=== PATIENT | male | born 1975 | race Caucasian/White ===

== ENCOUNTER 2017-11-03 14:26 | Inpatient (IN) | payer OTHER ==
--- NOTE | 2017-11-03 14:16 | HP ---
[facility] Re[facility] Assess/Revision - Admission History Admitted to Rehab from: [facility] Date of Admission to Rehab: 11/03/2017 - Vital signs Vital Signs: NOTED; STABLE. - Findings Detox History & Physical reviewed: Yes Concur with findings: Yes Comments/Additional Findings: PATIENT'S MEDICAL / MEDICATION HISTORY REVIEWED PRIOR TO DISCHARGE FROM DETOX UNIT. PATIENT WAS DISCHARGED FROM DETOX UNIT TO BE TAKEN TO REHAB UNIT IN STABLE MEDICAL CONDITION. Inpatient Rehab Admission - Initial Determination Are CD services needed?: Yes Free of communicable disease: Yes Not in need of hospitalization: Yes - Rehab Admission Criteria Previous failed treatment: Yes Comorbidities: Yes Patient is meeting Inpatient Rehab admission criteria:: Yes
[~2017-11-03 14:26] MED LIST: ACETAMINOPHEN 325 MG TABLET (FP) PO PRN; MAG HYDROX/AL HYDROX/SIMETH 30 ML UNIT-DOSE CUP PO PRN; MAGNESIUM CITRATE 300 ML BOTTLE PO PRN; MENTHOL/PHENOL 1 EACH UD MM PRN; P-EPHED 60MG/TRIPROLIDI 2.5MG TABLET PO PRN; guaiFENesin/D-METHORPHAN HB 10 ML UNIT-DOSE CUPS PO PRN
--- NOTE | 2017-11-03 14:36 | HP ---
Psychiatrist Admission - Data Date of interview: 11/03/17 Admission source: 3N Identifying data: This is the first [facility] admission for this 41 years old male, father of 2 children, unemployed on public assistance, homeless Medical History: Significant for Hep C diagnosed in 1996, chronic back pain due to herniated disc, tinnitus both ears and benzodiazepine-related seizure. Patient attends [facility] and he is on methadone 60 mg/day. Smokes 4 cigarettes daily Psychiatric History: Reports being diagnosed with Bipolar Disorder since 2009 and has had multiple previous psychiatric hospitalizations at various institutions including [facility], [facility] and most recently in September 2017 at [facility] for depression. Reports seeing a psychiatrist at [facility] and he is prescribed Zyprexa 20 mg po HS and Celexa 10 mg po daily. Patient was seen by web content writer on 10/31/17 while in detox and was continued on his home medications. At present, reports feeling depressed and sleeping poorly Physical/Sexual Abuse/Trauma History: Denies history of emotional, physical or sexual abuseas well as DV relationship Additional Comment: Reports history of 3 previous arrests including one felony conviction. Denies being on parole/probation at present Allergies/Adverse Reactions: Allergies Allergy/AdvReac Type Severity Reaction Status Date / Time No Known Allergies Allergy Verified 11/03/17 14:38 Date of last physical exam: 10/30/17 Concur with the findings of this exam: Yes - Substance Abuse/Tx History Hx Alcohol Use: Yes Hx Substance Use: Yes (10 previous inpt detox admissions @ [facility]) Substance Use Type: Alcohol (Started drinking alcohol at age 14, consumes half a pint of liquor & 15x 16oz of beer daily. Last drank on 10/30/17)), Cocaine ( Started using cocaineat age 13, consumes 5-10 bags daily. Last used on 10/30/17)) Hx Substance Use Treatment: Yes (Currently attends [facility]) Mental Status Exam - Mental Status Exam Alert and Oriented to: Time, Place, Person Cognitive Function: Fair Patient Appearance: Well Groomed Mood: Depressed Affect: Appropriate Patient Behavior: Cooperative Speech Pattern: Clear Voice Loudness: Normal Thought Process: Intact Thought Disorder: Not Present Hallucinations: Denies Suicidal Ideation: Denies Homicidal Ideation: Denies Insight/Judgement: Fair Sleep: Poorly Appetite: Poor Muscle strength/Tone: Normal Gait/Station: Spastic Psychiatric Findings - Problem List ([place] 1, 2,3) (1) Alcohol dependence Current Visit: No Status: Active (2) Cocaine dependence Current Visit: No Status: Acute Qualifiers: Substance use status: uncomplicated Qualified Code(s): F14.20 - Cocaine dependence, uncomplicated (3) Opioid dependence on agonist therapy Current Visit: No Status: Chronic (4) Nicotine dependence Current Visit: No Status: Chronic Comment: intermittent use (5) Bipolar disorder Current Visit: Yes Status: Chronic (6) Substance induced mood disorder Current Visit: Yes Status: Acute (7) Substance-induced sleep disorder Current Visit: Yes Status: Acute (8) Hepatitis C carrier Current Visit: No Status: Chronic Comment: untreated (9) Drug withdrawal seizure Current Visit: No Status: Chronic Qualifiers: Complication of substance-induced condition: uncomplicated Qualified Code(s ): F19.230 - Other psychoactive substance dependence with withdrawal, uncomplicated - Initial Treatment Plan Initial Treatment Plan: 1) Continue Celexa 10 mg po daily and Zyprexa 20 mg po HS. 2) Start Belsomra 10 mg po HS prn for insomnia. 3) Monitor progress
[2017-11-03 14:56] VITALS: BMI 25.9
[2017-11-03] MEDS ORDERED: FLU VACCINE QUAD 60 MCG/0.5 ML (MDV 17-18) IM ONE (14:56)
[2017-11-03] MEDS: OLANZapine 10 MG TABLET PO SCH (21:15)
[2017-11-03] MEDS: THIAMINE HCL 100 MG TABLET (FP) PO SCH (21:17)
[2017-11-03] MEDS: SUVOREXANT 10 MG TABLET PO PRN (21:18)
[2017-11-03] MEDS: CYCLOBENZAPRINE HCL 5 MG TABLET PO PRN (22:38)
[2017-11-04] MEDS ORDERED: METHADONE HCL 10 MG TABLET ONE (05:47)
[2017-11-04] MEDS ORDERED: METHADONE HCL 40 MG DISPERSABLE TABLET ONE (05:47)
[2017-11-04] MEDS ORDERED: METHADONE HCL 10 MG TABLET PO SCH (06:00)
[2017-11-04] MEDS: METHADONE 40 MG, METHADONE 20 MG PO SCH (06:18)
[2017-11-04] MEDS: LOPERAMIDE HCL 2 MG CAPSULE PO PRN ×2 (07:14→21:44)
[2017-11-04] MEDS: CITALOPRAM HYDROBROMIDE 10 MG TABLET (FP) PO SCH (09:55)
[2017-11-04] MEDS: PRENATAL VITAMINS W/ FOLIC ACID TABLET (FP) PO SCH (09:55)
[2017-11-04] MEDS: CYCLOBENZAPRINE HCL 5 MG TABLET PO PRN ×2 (09:56→21:25)
[2017-11-04] MEDS: ASPIRIN COATED 81 MG TABLET.EC PO SCH (14:43)
--- NOTE | 2017-11-04 14:58 | PN ---
[facility] Progress Note Note: Patient reports chest pain (primarily left-sided) radiating down left arm and to bilateral jaws X approx. 30 minutes. Patient also reports difficulty breathing and dizziness. Patient notes that this set of symptoms has occurred before several times in the past. Patient denies any known history of cardiac, respiratory, or gastric disease. STAT ECG ordered, results noted. Lung sounds auscultated clear and equal bilaterally. VS: BP: 115/85; P: 96; RR: 18; T: 98.2. Patient A & O X 3, able to stand up and ambulate unassisted. Report given to Dr. Obrien at [facility]. Patient to be taken to [facility] for further evaluation. Yg Sarmiento NP
--- NOTE | 2017-11-04 15:53 | EKG ---
Test Reason : Blood Pressure : / mmHG Vent. Rate : 086 BPM Atrial Rate : 086 BPM P-R Int : 128 ms QRS Dur : 084 ms QT Int : 354 ms P-R-T Axes : 042 001 036 degrees QTc Int : 423 ms NORMAL SINUS RHYTHM NORMAL ECG WHEN COMPARED WITH ECG OF 30-OCT-2017 11:05, NO SIGNIFICANT CHANGE WAS FOUND Confirmed by JUD TRINH MD ([id number]) on 11/04/2017 3:53:19 PM Referred By: Confirmed By:JUD TRINH MD
[2017-11-04] MEDS: THIAMINE HCL 100 MG TABLET (FP) PO SCH (21:24)
[2017-11-04] MEDS: OLANZapine 10 MG TABLET PO SCH (21:25)
[2017-11-04] MEDS: SUVOREXANT 10 MG TABLET PO PRN (21:26)
[2017-11-05] MEDS ORDERED: METHADONE HCL 40 MG DISPERSABLE TABLET ONE (04:27)
[2017-11-05] MEDS ORDERED: METHADONE HCL 10 MG TABLET ONE (04:27)
[2017-11-05] MEDS: METHADONE 40 MG, METHADONE 20 MG PO SCH (06:14)
[2017-11-05] MEDS: LOPERAMIDE HCL 2 MG CAPSULE PO PRN (08:52)
[2017-11-05] MEDS: CITALOPRAM HYDROBROMIDE 10 MG TABLET (FP) PO SCH (09:59)
[2017-11-05] MEDS: PRENATAL VITAMINS W/ FOLIC ACID TABLET (FP) PO SCH (09:59)
[2017-11-05] MEDS: ASPIRIN COATED 81 MG TABLET.EC PO SCH (09:59)
[2017-11-05] MEDS: CYCLOBENZAPRINE HCL 5 MG TABLET PO PRN ×2 (10:00→21:29)
[2017-11-05] MEDS ORDERED: hydrOXYzine PAMOATE 50 MG CAPSULE (FP) PO PRN (14:38)
--- NOTE | 2017-11-05 14:47 | PN ---
S Progress Note Note: Patient c/ of feeling anxious, feels like is heart is raising. Reports feels non -radiating pain on TMJ joint when open and closing his mouth. Patient denies chest pain or SOB. Vital Signs Temperature 98.6 F 11/05/17 07:08 Pulse Rate 107 H 11/05/17 10:00 Respiratory Rate 18 11/05/17 10:00 Blood Pressure 118/70 11/05/17 10:00 O2 Sat by Pulse Oximetry (%) Labs review Asseesment: Patient AOx3, in no apparent distress, anxious with rapid speech Normal HR, RR No adventitious breath sounds + Pain at TMJ joint Plan: Patient informed to advise staff / RN / REGENERATION OPERATOR/ MD if CP / SOB or worsening symptoms present AST elevated d/c Tylenol Ibuprofen for pain Increase fluids Patient to follow up with psych
--- NOTE | 2017-11-05 14:56 | PN ---
Psychiatric Progress Note Vital Signs: Vital Signs Period Temp Pulse Resp BP Sys/White Pulse Ox Last 24 Hr 98.6 F 78-107 18-18 116-118/69-70 Date of Session: 11/05/17 Chief Complaint:: Anxiety HPI: Patient addressing Alcohol and Cocaine Dependence comorbid with Nicotine Dependence, Bipolar Disorder, Substance-Induced Mood Disorder and Substance- Induced Sleep Disorder ROS: Hep C, Drud withdrawal seizure Current Medications: Active Medications Generic Name Dose Route Start Last Admin Trade Name Freq PRN Reason Stop Dose Admin Al Hydroxide/Mg Hydroxide 30 ml 11/03/17 14:10 11/04/17 00:34 Mylanta Oral Suspension - PO 30 ml Q6H PRN Administration DYSPEPSIA Aspirin 81 mg 11/04/17 14:45 11/05/17 09:59 Ecotrin - PO 81 mg DAILY VICKI Administration Bismuth Subsalicylate 30 ml 11/05/17 13:09 Pepto-Bismol Liquid - PO 11/08/17 13:08 BID PRN DIARRHEA Citalopram Hydrobromide 10 mg 11/04/17 10:00 11/05/17 09:59 Celexa - PO 10 mg DAILY VICKI Administration Cyclobenzaprine HCl 5 mg 11/03/17 21:17 11/05/17 10:00 Cyclobenzaprine Hcl PO 5 mg TID PRN Administration MUSCLE SPASMS Eucalyptus/Menthol/Phenol/Sorbitol 1 each 11/03/17 14:10 Cepastat Lozenge - MM Q4H PRN SORE THROAT Guaifenesin 10 ml 11/03/17 14:10 Robitussin Dm - PO Q6H PRN COUGH Hydrocortisone 1 applic 11/05/17 14:51 Hytone 1% Cream - TP BID PRN DRY SKIN Hydroxyzine Pamoate 50 mg 11/05/17 14:38 Vistaril - PO Q6H PRN FOR ITCHING Hydroxyzine Pamoate 50 mg 11/05/17 14:49 Vistaril - PO Q4H PRN ANXIETY Ibuprofen 400 mg 11/03/17 14:10 Motrin - PO Q6H PRN Pain Level 4-6 Loperamide HCl 4 mg 11/03/17 14:10 11/05/17 08:52 Imodium - PO 4 mg Q6H PRN Administration DIARRHEA Magnesium Citrate 300 ml 11/03/17 14:10 Citroma - PO Q48H PRN CONSTIPATION Magnesium Hydroxide 30 ml 11/03/17 14:10 Milk Of Magnesia - PO DAILY PRN CONSTIPATION Methadone HCl 40 mg/ Methadone 55 mg 11/06/17 06:00 HCl 10 mg/ Methadone HCl 5 mg PO 11/12/17 05:59 DAILY@0600 VICKI Nicotine Polacrilex 2 mg 11/03/17 14:21 Nicorette Gum - BUC Q2H PRN NICOTINE REPLACEMENT RX Olanzapine 20 mg 11/03/17 22:00 11/04/17 21:25 Zyprexa - PO 20 mg HS VICKI Administration Multivit/Folic Acid/Iron 1 tab 11/04/17 10:00 11/05/17 09:59 Vitamins (Sjr) - PO 1 tab DAILY VICKI Administration Pseudoephedrine/Triprolidine 1 combo 11/03/17 14:10 Actifed - PO TID PRN NASAL CONGESTION Suvorexant 10 mg 11/03/17 15:05 11/04/17 21:26 Belsomra PO 10 mg HS PRN Administration INSOMNIA Thiamine HCl 100 mg 11/03/17 22:00 11/04/17 21:24 Vitamin B1 - PO 100 mg HS VICKI Administration Medication(s) Change(s): Start Vistaril 50 mg po Q 4hrs prn for anxiety Current Side Effect: No Lab tests ordered: Yes Lab tests reviewed: Yes Provider note:: Patient reports hat he has been feeling anxious despite being on Celexa 10 mg po daily and Zyprexa 20 mg po HS. Yesterday he was referred to [facility] ED for evaluation of chest pain. Exam there revealed that chest pain was not cardiac in origin. He said that ED physician told him that anxiety may be the culprit for his symptom. Discussed with patient anxiolytic properties as well as adverse-effects of Hydroxyzine Pamoate and he agreed to try it Total face to face time:: 15 Mental Status Exam - Mental Status Exam Alert and Oriented to: Time, Place, Person Cognitive Function: Fair Patient Appearance: Well Groomed Mood: Anxious Affect: Appropriate Patient Behavior: Cooperative Speech Pattern: Clear Voice Loudness: Normal Thought Process: Intact, Goal Oriented Thought Disorder: Not Present Hallucinations: Denies Suicidal Ideation: Denies Homicidal Ideation: Denies Insight/Judgement: Fair Sleep: Fair Appetite: Good Muscle strength/Tone: Normal Gait/Station: Normal Psychiatric Treatment Plan - Problem List (1) Alcohol dependence Current Visit: No (2) Cocaine dependence Current Visit: No Qualifiers: Substance use status: uncomplicated Qualified Code(s): F14.20 - Cocaine dependence, uncomplicated (3) Opioid dependence on agonist therapy Current Visit: No (4) Nicotine dependence Current Visit: No Comment: intermittent use (5) Bipolar disorder Current Visit: Yes (6) Substance induced mood disorder Current Visit: Yes (7) Substance-induced sleep disorder Current Visit: Yes (8) Hepatitis C carrier Current Visit: No Comment: untreated (9) Drug withdrawal seizure Current Visit: No Qualifiers: Complication of substance-induced condition: uncomplicated Qualified Code(s ): F19.230 - Other psychoactive substance dependence with withdrawal, uncomplicated Initial treatment plan: 1) Start Vistaril 50 mg po Q4hrs prn for anxiety. 2) Monitor progress
[2017-11-05] MEDS: BISMUTH SUBSALICYLATE 262 MG/15 ML BTL PO PRN ×2 (16:08→21:32)
[2017-11-05] MEDS: THIAMINE HCL 100 MG TABLET (FP) PO SCH (21:29)
[2017-11-05] MEDS: OLANZapine 10 MG TABLET PO SCH (21:29)
[2017-11-05] MEDS: SUVOREXANT 10 MG TABLET PO PRN (21:29)
[2017-11-05] MEDS: hydrOXYzine PAMOATE 50 MG CAPSULE (FP) PO PRN (21:29)
[2017-11-05] MEDS: HYDROCORTISONE 1% TOPICAL CREAM 30 GM TUBE TP PRN (21:31)
[2017-11-06] MEDS ORDERED: METHADONE HCL 40 MG DISPERSABLE TABLET ONE (05:04)
[2017-11-06] MEDS ORDERED: METHADONE HCL 10 MG TABLET ONE (05:04)
[2017-11-06] MEDS ORDERED: METHADONE HCL 5 MG TABLET ONE (05:05)
[2017-11-06] MEDS ORDERED: METHADONE HCL 40 MG DISPERSABLE TABLET PO SCH (06:00)
[2017-11-06] MEDS: METHADONE 40 MG, METHADONE 10 MG, METHADONE 5 MG PO SCH (06:34)
[2017-11-06] MEDS: ASPIRIN COATED 81 MG TABLET.EC PO SCH (09:25)
[2017-11-06] MEDS: CITALOPRAM HYDROBROMIDE 10 MG TABLET (FP) PO SCH (09:25)
[2017-11-06] MEDS: PRENATAL VITAMINS W/ FOLIC ACID TABLET (FP) PO SCH (09:25)
[2017-11-06] MEDS: hydrOXYzine PAMOATE 50 MG CAPSULE (FP) PO PRN ×2 (09:26→21:14)
[2017-11-06] MEDS: CYCLOBENZAPRINE HCL 5 MG TABLET PO PRN ×2 (09:26→21:14)
[2017-11-06] MEDS: BISMUTH SUBSALICYLATE 262 MG/15 ML BTL PO PRN ×2 (09:27→21:16)
[2017-11-06] MEDS: THIAMINE HCL 100 MG TABLET (FP) PO SCH (21:14)
[2017-11-06] MEDS: OLANZapine 10 MG TABLET PO SCH (21:14)
--- NOTE | 2017-11-06 21:26 | PN ---
S Progress Note Note: Psychiatry Attending's commissioning editor note : Belsomra 10 mg po hs prn. Renewed as per already established careplan.
[2017-11-06] MEDS: SUVOREXANT 10 MG TABLET PO PRN (22:06)
[2017-11-07] MEDS ORDERED: METHADONE HCL 10 MG TABLET ONE (03:39)
[2017-11-07] MEDS ORDERED: METHADONE HCL 40 MG DISPERSABLE TABLET ONE (03:39)
[2017-11-07] MEDS ORDERED: METHADONE HCL 5 MG TABLET ONE (03:40)
[2017-11-07] MEDS: METHADONE 40 MG, METHADONE 10 MG, METHADONE 5 MG PO SCH (05:54)
[2017-11-07] MEDS: PRENATAL VITAMINS W/ FOLIC ACID TABLET (FP) PO SCH (09:42)
[2017-11-07] MEDS: BISMUTH SUBSALICYLATE 262 MG/15 ML BTL PO PRN (09:42)
[2017-11-07] MEDS: ASPIRIN COATED 81 MG TABLET.EC PO SCH (09:42)
[2017-11-07] MEDS: CITALOPRAM HYDROBROMIDE 10 MG TABLET (FP) PO SCH (09:42)
[2017-11-07] MEDS: MAGNESIUM HYDROX 2400MG/30ML ORAL SUSPENSION 30 ML CUP PO PRN (09:43)
[2017-11-07] MEDS: THIAMINE HCL 100 MG TABLET (FP) PO SCH (21:14)
[2017-11-07] MEDS: SUVOREXANT 10 MG TABLET PO PRN (21:14)
[2017-11-07] MEDS: CYCLOBENZAPRINE HCL 5 MG TABLET PO PRN (21:14)
[2017-11-07] MEDS: OLANZapine 10 MG TABLET PO SCH (21:14)
[2017-11-07] MEDS: HYDROCORTISONE 1% TOPICAL CREAM 30 GM TUBE TP PRN (21:16)
[2017-11-07] MEDS: hydrOXYzine PAMOATE 50 MG CAPSULE (FP) PO PRN (21:25)
[2017-11-08] MEDS ORDERED: METHADONE HCL 10 MG TABLET ONE (03:32)
[2017-11-08] MEDS ORDERED: METHADONE HCL 5 MG TABLET ONE (03:32)
[2017-11-08] MEDS ORDERED: METHADONE HCL 40 MG DISPERSABLE TABLET ONE (03:32)
[2017-11-08] MEDS: METHADONE 40 MG, METHADONE 10 MG, METHADONE 5 MG PO SCH (06:09)
[2017-11-08] MEDS: CITALOPRAM HYDROBROMIDE 10 MG TABLET (FP) PO SCH (09:51)
[2017-11-08] MEDS: ASPIRIN COATED 81 MG TABLET.EC PO SCH (09:51)
[2017-11-08] MEDS: MAGNESIUM HYDROX 2400MG/30ML ORAL SUSPENSION 30 ML CUP PO PRN (09:51)
[2017-11-08] MEDS: PRENATAL VITAMINS W/ FOLIC ACID TABLET (FP) PO SCH (09:51)
[2017-11-08] MEDS: CYCLOBENZAPRINE HCL 5 MG TABLET PO PRN ×2 (09:52→21:14)
[2017-11-08] MEDS: hydrOXYzine PAMOATE 50 MG CAPSULE (FP) PO PRN ×2 (16:06→21:14)
[2017-11-08] MEDS: THIAMINE HCL 100 MG TABLET (FP) PO SCH (21:14)
[2017-11-08] MEDS: OLANZapine 10 MG TABLET PO SCH (21:14)
[2017-11-08] MEDS: SUVOREXANT 10 MG TABLET PO PRN (21:15)
[2017-11-09] MEDS: IBUPROFEN 400 MG TABLET (FP) PO PRN (00:12)
[2017-11-09] MEDS ORDERED: METHADONE HCL 40 MG DISPERSABLE TABLET ONE (03:07)
[2017-11-09] MEDS ORDERED: METHADONE HCL 10 MG TABLET ONE (03:07)
[2017-11-09] MEDS ORDERED: METHADONE HCL 5 MG TABLET ONE (03:07)
[2017-11-09] MEDS: METHADONE 40 MG, METHADONE 10 MG, METHADONE 5 MG PO SCH (06:10)
[2017-11-09] MEDS: CITALOPRAM HYDROBROMIDE 10 MG TABLET (FP) PO SCH (09:44)
[2017-11-09] MEDS: PRENATAL VITAMINS W/ FOLIC ACID TABLET (FP) PO SCH (09:44)
[2017-11-09] MEDS: ASPIRIN COATED 81 MG TABLET.EC PO SCH (09:44)
[2017-11-09] MEDS: hydrOXYzine PAMOATE 50 MG CAPSULE (FP) PO PRN ×3 (09:47→21:44)
[2017-11-09] MEDS: THIAMINE HCL 100 MG TABLET (FP) PO SCH (21:42)
[2017-11-09] MEDS: OLANZapine 10 MG TABLET PO SCH (21:42)
[2017-11-09] MEDS: NICOTINE POLACRILEX 2 MG GUM BUC PRN (21:45)
[2017-11-09] MEDS: SUVOREXANT 10 MG TABLET PO PRN (21:45)
[2017-11-09] MEDS: CYCLOBENZAPRINE HCL 5 MG TABLET PO PRN (21:45)
[2017-11-10] MEDS ORDERED: METHADONE HCL 40 MG DISPERSABLE TABLET ONE (04:38)
[2017-11-10] MEDS ORDERED: METHADONE HCL 10 MG TABLET ONE (04:38)
[2017-11-10] MEDS ORDERED: METHADONE HCL 5 MG TABLET ONE (04:38)
[2017-11-10] MEDS: METHADONE 40 MG, METHADONE 10 MG, METHADONE 5 MG PO SCH (06:01)
[2017-11-10] MEDS: PRENATAL VITAMINS W/ FOLIC ACID TABLET (FP) PO SCH (09:59)
[2017-11-10] MEDS: CITALOPRAM HYDROBROMIDE 10 MG TABLET (FP) PO SCH (09:59)
[2017-11-10] MEDS: CYCLOBENZAPRINE HCL 5 MG TABLET PO PRN ×2 (09:59→21:07)
[2017-11-10] MEDS: ASPIRIN COATED 81 MG TABLET.EC PO SCH (09:59)
[2017-11-10] MEDS: hydrOXYzine PAMOATE 50 MG CAPSULE (FP) PO PRN ×3 (09:59→21:07)
[2017-11-10] MEDS ORDERED: COLLOIDAL OATMEAL 1 BAR EACH TP PRN (14:59)
[2017-11-10] MEDS ORDERED: SODIUM PHOSPHATE/NA BIPHOS 133 ML ENEMA PR ONE (15:39)
--- NOTE | 2017-11-10 15:41 | PN ---
[facility] Progress Note Note: Patient complain of constipation x 3 days. No N/V/D. Last BM 3 days. OBJ: Alert and oriented x 3. In NAD. GI: softly distended, BS+, NT A/P constipation Increase oral fluids Fleets enema HI x one dose monitor clinically
[2017-11-10] MEDS: OLANZapine 10 MG TABLET PO SCH (21:07)
[2017-11-10] MEDS: THIAMINE HCL 100 MG TABLET (FP) PO SCH (21:07)
[2017-11-10] MEDS: SUVOREXANT 10 MG TABLET PO PRN (21:07)
[2017-11-11] MEDS ORDERED: METHADONE HCL 10 MG TABLET ONE (04:20)
[2017-11-11] MEDS ORDERED: METHADONE HCL 5 MG TABLET ONE (04:20)
[2017-11-11] MEDS ORDERED: METHADONE HCL 40 MG DISPERSABLE TABLET ONE (04:20)
[2017-11-11] MEDS: METHADONE 40 MG, METHADONE 10 MG, METHADONE 5 MG PO SCH (06:26)
[2017-11-11] MEDS: CYCLOBENZAPRINE HCL 5 MG TABLET PO PRN (09:56)
[2017-11-11] MEDS: PRENATAL VITAMINS W/ FOLIC ACID TABLET (FP) PO SCH (09:57)
[2017-11-11] MEDS: hydrOXYzine PAMOATE 50 MG CAPSULE (FP) PO PRN ×3 (09:57→21:21)
[2017-11-11] MEDS: ASPIRIN COATED 81 MG TABLET.EC PO SCH (09:57)
[2017-11-11] MEDS: CITALOPRAM HYDROBROMIDE 10 MG TABLET (FP) PO SCH (09:57)
[2017-11-11] MEDS: NICOTINE POLACRILEX 2 MG GUM BUC PRN (09:58)
[2017-11-11] MEDS: THIAMINE HCL 100 MG TABLET (FP) PO SCH (21:19)
[2017-11-11] MEDS: OLANZapine 10 MG TABLET PO SCH (21:20)
[2017-11-11] MEDS: SUVOREXANT 10 MG TABLET PO PRN (21:20)
[2017-11-12] MEDS ORDERED: METHADONE HCL 40 MG DISPERSABLE TABLET ONE (04:12)
[2017-11-12] MEDS ORDERED: METHADONE HCL 10 MG TABLET ONE (04:12)
[2017-11-12] MEDS ORDERED: METHADONE HCL 5 MG TABLET ONE (04:13)
[2017-11-12] MEDS: METHADONE 40 MG, METHADONE 10 MG, METHADONE 5 MG PO SCH (06:09)
[2017-11-12] MEDS: CITALOPRAM HYDROBROMIDE 10 MG TABLET (FP) PO SCH (09:37)
[2017-11-12] MEDS: CYCLOBENZAPRINE HCL 5 MG TABLET PO PRN ×2 (09:37→22:00)
[2017-11-12] MEDS: ASPIRIN COATED 81 MG TABLET.EC PO SCH (09:37)
[2017-11-12] MEDS: hydrOXYzine PAMOATE 50 MG CAPSULE (FP) PO PRN ×3 (09:38→22:00)
[2017-11-12] MEDS: PRENATAL VITAMINS W/ FOLIC ACID TABLET (FP) PO SCH (09:38)
[2017-11-12] MEDS: OLANZapine 10 MG TABLET PO SCH (22:00)
[2017-11-12] MEDS: THIAMINE HCL 100 MG TABLET (FP) PO SCH (22:01)
--- NOTE | 2017-11-12 23:17 | PN ---
S Progress Note Note: RECEIVED REPORT FROM RN THAT PT. WAS C/O OF CHEST PAIN RADIATING DOWN LEFT ARM AND JAW PAIN. VS WERE FOLLOWED: BP 111/82, P 88, R 18, T. 98.2) STAT EKG ORDERED. NSR. CONSULTED WITH THE PT. ON THE UNIT. HE WAS WATCHING TV WITH NO SIGNS OF DISTRESS NOTED OR REPORTED. HE REPORTS HE HAS HAD SIMILAR PAIN FOR THE LAST 7 MONTHS. HE WAS ADVISED TO NOTIFY MD/TOBACCO CLASSER/RN IF SYMPTOMS WORSEN AND TO FOLLOW-UP WITH PCP UPON DISCHARGE.
[2017-11-13] MEDS ORDERED: METHADONE HCL 40 MG DISPERSABLE TABLET ONE (03:16)
[2017-11-13] MEDS ORDERED: METHADONE HCL 10 MG TABLET ONE (03:16)
[2017-11-13] MEDS ORDERED: METHADONE HCL 5 MG TABLET ONE (03:16)
[2017-11-13] MEDS: METHADONE 40 MG, METHADONE 10 MG, METHADONE 5 MG PO SCH (06:24)
[2017-11-13] MEDS: ASPIRIN COATED 81 MG TABLET.EC PO SCH (09:29)
[2017-11-13] MEDS: CYCLOBENZAPRINE HCL 5 MG TABLET PO PRN ×2 (09:30→21:14)
[2017-11-13] MEDS: PRENATAL VITAMINS W/ FOLIC ACID TABLET (FP) PO SCH (09:30)
[2017-11-13] MEDS: CITALOPRAM HYDROBROMIDE 10 MG TABLET (FP) PO SCH (09:30)
[2017-11-13] MEDS: hydrOXYzine PAMOATE 50 MG CAPSULE (FP) PO PRN ×3 (09:30→21:14)
[2017-11-13] MEDS: IBUPROFEN 400 MG TABLET (FP) PO PRN (15:36)
[2017-11-13] MEDS: THIAMINE HCL 100 MG TABLET (FP) PO SCH (21:12)
[2017-11-13] MEDS: OLANZapine 10 MG TABLET PO SCH (21:12)
[2017-11-13] MEDS: MELATONIN 5 MG TABLETS PO PRN (23:07)
[2017-11-14] MEDS ORDERED: METHADONE HCL 5 MG TABLET ONE (02:50)
[2017-11-14] MEDS ORDERED: METHADONE HCL 40 MG DISPERSABLE TABLET ONE (02:50)
[2017-11-14] MEDS ORDERED: METHADONE HCL 10 MG TABLET ONE (02:50)
[2017-11-14] MEDS: METHADONE 40 MG, METHADONE 10 MG, METHADONE 5 MG PO SCH (06:13)
[2017-11-14] MEDS: IBUPROFEN 400 MG TABLET (FP) PO PRN ×3 (06:16→21:23)
[2017-11-14] MEDS: CYCLOBENZAPRINE HCL 5 MG TABLET PO PRN ×3 (07:22→21:24)
--- NOTE | 2017-11-14 09:22 | EKG ---
Test Reason : Blood Pressure : / mmHG Vent. Rate : 084 BPM Atrial Rate : 084 BPM P-R Int : 150 ms QRS Dur : 086 ms QT Int : 386 ms P-R-T Axes : 056 -03 032 degrees QTc Int : 456 ms NORMAL SINUS RHYTHM NORMAL ECG WHEN COMPARED WITH ECG OF 04-NOV-2017 16:56, NO SIGNIFICANT CHANGE WAS FOUND Confirmed by PRADIP EDOUARD MD ([id number]) on 11/14/2017 9:22:30 AM Referred By: Confirmed By:PRADIP EDOUARD MD
[2017-11-14] MEDS: ASPIRIN COATED 81 MG TABLET.EC PO SCH (09:43)
[2017-11-14] MEDS: PRENATAL VITAMINS W/ FOLIC ACID TABLET (FP) PO SCH (09:43)
[2017-11-14] MEDS: CITALOPRAM HYDROBROMIDE 10 MG TABLET (FP) PO SCH (09:43)
[2017-11-14] MEDS: hydrOXYzine PAMOATE 50 MG CAPSULE (FP) PO PRN ×2 (09:45→21:24)
[2017-11-14] MEDS: HYDROCORTISONE 1% TOPICAL CREAM 30 GM TUBE TP PRN (10:33)
[2017-11-14] MEDS ORDERED: PT OWN MED DRAWER 7, Y5N ONE (10:34)
[2017-11-14] MEDS ORDERED: IBUPROFEN 400 MG TABLET (FP) PO ONE (13:28)
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
--- NOTE | 2017-11-14 20:10 | PN ---
[facility] Progress Note (SOAP) Subjective: Patient was seen and evaluated in bed. Complained of chest pain radiating to both arms and jaw. Patient states that he has experienced this for about 8 months. Appears very anxious. Objective: 11/14/17 20:06 Vital Signs Temperature 98.0 F 11/14/17 06:44 Pulse Rate 84 11/14/17 06:44 Respiratory Rate 18 11/14/17 06:44 Blood Pressure 120/77 11/14/17 06:44 O2 Sat by Pulse Oximetry (%) Assessment: Anxiety Plan: EKG- NSR Motrin 400mg tablet oral Psych Consult
[2017-11-14] MEDS: OLANZapine 10 MG TABLET PO SCH (21:24)
[2017-11-14] MEDS: THIAMINE HCL 100 MG TABLET (FP) PO SCH (21:24)
[2017-11-14] MEDS: MELATONIN 5 MG TABLETS PO PRN (21:25)
[2017-11-15] MEDS ORDERED: METHADONE HCL 40 MG DISPERSABLE TABLET ONE (04:21)
[2017-11-15] MEDS ORDERED: METHADONE HCL 10 MG TABLET ONE (04:21)
[2017-11-15] MEDS ORDERED: METHADONE HCL 5 MG TABLET ONE (04:22)
[2017-11-15] MEDS: METHADONE 40 MG, METHADONE 10 MG, METHADONE 5 MG PO SCH (06:28)
[2017-11-15] MEDS: IBUPROFEN 400 MG TABLET (FP) PO PRN ×2 (06:33→14:32)
[2017-11-15] MEDS: CYCLOBENZAPRINE HCL 5 MG TABLET PO PRN ×4 (06:34→21:07)
[2017-11-15] MEDS: CITALOPRAM HYDROBROMIDE 10 MG TABLET (FP) PO SCH (10:54)
[2017-11-15] MEDS: PRENATAL VITAMINS W/ FOLIC ACID TABLET (FP) PO SCH (10:54)
[2017-11-15] MEDS: hydrOXYzine PAMOATE 50 MG CAPSULE (FP) PO PRN ×2 (10:54→21:07)
[2017-11-15] MEDS: ASPIRIN COATED 81 MG TABLET.EC PO SCH (10:54)
[2017-11-15] MEDS: THIAMINE HCL 100 MG TABLET (FP) PO SCH (21:07)
[2017-11-15] MEDS: OLANZapine 10 MG TABLET PO SCH (21:07)
[2017-11-15] MEDS: MELATONIN 5 MG TABLETS PO PRN (21:08)
--- NOTE | 2017-11-15 23:56 | EKG ---
Test Reason : Blood Pressure : / mmHG Vent. Rate : 090 BPM Atrial Rate : 090 BPM P-R Int : 154 ms QRS Dur : 086 ms QT Int : 370 ms P-R-T Axes : 059 -04 031 degrees QTc Int : 452 ms NORMAL SINUS RHYTHM NORMAL ECG WHEN COMPARED WITH ECG OF 12-NOV-2017 20:03, NO SIGNIFICANT CHANGE WAS FOUND Confirmed by JOSE MARTIN TRIPLETT MD ([id number]) on 11/15/2017 11:56:20 PM Referred By: Confirmed By:JOSE MARTIN TRIPLETT MD
[2017-11-16] MEDS ORDERED: METHADONE HCL 40 MG DISPERSABLE TABLET ONE (04:22)
[2017-11-16] MEDS ORDERED: METHADONE HCL 5 MG TABLET ONE (04:22)
[2017-11-16] MEDS ORDERED: METHADONE HCL 10 MG TABLET ONE (04:22)
[2017-11-16] MEDS: METHADONE 40 MG, METHADONE 10 MG, METHADONE 5 MG PO SCH (06:15)
[2017-11-16] MEDS ORDERED: PT OWN MED DRAWER 7, Y5N ONE ×2 (06:20→06:47)
--- NOTE | 2017-11-16 06:32 | PN ---
Psychiatric Progress Note Vital Signs: Vital Signs Period Temp Pulse Resp BP Sys/White Pulse Ox Last 24 Hr 97.5 F 71 18-20 98/69 Date of Session: 11/16/17 Chief Complaint:: Discharge Note HPI: Patient addressing Alcohol and Cocaine Dependencecomorbid with Opioid Dependence on Agonist Therapy, Nicotine Dependence, Bipolar Disorder, Substance- Induce Mood Disorder and Substance-Induced Sleep Disorder ROS: Hep C, Drug withdrawal seizure Current Medications: Active Medications Generic Name Dose Route Start Last Admin Trade Name Freq PRN Reason Stop Dose Admin Al Hydroxide/Mg Hydroxide 30 ml 11/03/17 14:10 11/04/17 00:34 Mylanta Oral Suspension - PO 30 ml Q6H PRN Administration DYSPEPSIA Aspirin 81 mg 11/04/17 14:45 11/15/17 10:54 Ecotrin - PO 81 mg DAILY VICKI Administration Citalopram Hydrobromide 10 mg 11/04/17 10:00 11/15/17 10:54 Celexa - PO 10 mg DAILY VICKI Administration Colloidal Oatmeal 1 applic 11/10/17 14:59 Aveeno Soap - TP DAILY PRN HYGEINE Cyclobenzaprine HCl 5 mg 11/03/17 21:17 11/15/17 21:07 Cyclobenzaprine Hcl PO 5 mg TID PRN Administration MUSCLE SPASMS Eucalyptus/Menthol/Phenol/Sorbitol 1 each 11/03/17 14:10 Cepastat Lozenge - MM Q4H PRN SORE THROAT Guaifenesin 10 ml 11/03/17 14:10 Robitussin Dm - PO Q6H PRN COUGH Hydrocortisone 1 applic 11/05/17 15:25 11/14/17 10:33 Hytone 1% Cream - TP 1 applic BID PRN Administration DRY SKIN Hydroxyzine Pamoate 50 mg 11/05/17 14:49 11/15/17 21:07 Vistaril - PO 50 mg Q4H PRN Administration ANXIETY Ibuprofen 400 mg 11/03/17 14:10 11/15/17 14:32 Motrin - PO 400 mg Q6H PRN Administration Pain Level 4-6 Loperamide HCl 4 mg 11/03/17 14:10 11/05/17 08:52 Imodium - PO 4 mg Q6H PRN Administration DIARRHEA Magnesium Citrate 300 ml 11/03/17 14:10 11/09/17 09:47 Citroma - PO 300 ml Q48H PRN Administration CONSTIPATION Magnesium Hydroxide 30 ml 11/03/17 14:10 11/08/17 09:51 Milk Of Magnesia - PO 30 ml DAILY PRN Administration CONSTIPATION Melatonin 5 mg 11/13/17 22:26 11/15/17 21:08 Melatonin PO 5 mg HS PRN Administration INSOMNIA Methadone HCl 40 mg/ Methadone 55 mg 11/12/17 06:00 11/16/17 06:15 HCl 10 mg/ Methadone HCl 5 mg PO 11/18/17 05:59 55 mg DAILY@0600 VICKI Administration Nicotine Polacrilex 2 mg 11/03/17 14:21 11/11/17 09:58 Nicorette Gum - BUC 2 mg Q2H PRN Administration NICOTINE REPLACEMENT RX Olanzapine 20 mg 11/03/17 22:00 11/15/17 21:07 Zyprexa - PO 20 mg HS VICKI Administration Multivit/Folic Acid/Iron 1 tab 11/04/17 10:00 11/15/17 10:54 Vitamins (Sjr) - PO 1 tab DAILY VICKI Administration Pseudoephedrine/Triprolidine 1 combo 11/03/17 14:10 Actifed - PO TID PRN NASAL CONGESTION Thiamine HCl 100 mg 11/03/17 22:00 11/15/17 21:07 Vitamin B1 - PO 100 mg HS VICKI Administration Current Side Effect: No Lab tests ordered: Yes Lab tests reviewed: Yes Provider note:: Patient has completed this program today. He has met his treatment goals and will continue to address his issues in ferry terminal agent residential program at [facility]. Told advertising copy writer that from his participation in this program, he has learned to surround himself with positive, sober network to maitain abstinence. He responded well to Celexa 10 mg po daily, Zyprexa 20 mg po HS, Belsomra prn for sleep and Vistaril prn fr anxiety. Scripts for 30 days supply of Celexa and Zyprexa are electronically transmitted to [facility] at [address] [place] [address]. He is stable for discharge today Total face to face time:: 35 Mental Status Exam - Mental Status Exam Alert and Oriented to: Time, Place, Person Cognitive Function: Fair Patient Appearance: Well Groomed Mood: Hopeful, Euthymic Affect: Appropriate Patient Behavior: Cooperative Speech Pattern: Clear Voice Loudness: Normal Thought Process: Intact, Goal Oriented Thought Disorder: Not Present Hallucinations: Denies Suicidal Ideation: Denies Homicidal Ideation: Denies Insight/Judgement: Fair Sleep: Fair Appetite: Good Muscle strength/Tone: Normal Gait/Station: Normal Psychiatric Treatment Plan - Problem List (1) Alcohol dependence Current Visit: No (2) Cocaine dependence Current Visit: No Qualifiers: Substance use status: uncomplicated Qualified Code(s): F14.20 - Cocaine dependence, uncomplicated (3) Opioid dependence on agonist therapy Current Visit: No (4) Nicotine dependence Current Visit: No Comment: intermittent use (5) Bipolar disorder Current Visit: Yes (6) Substance induced mood disorder Current Visit: Yes (7) Substance-induced sleep disorder Current Visit: Yes (8) Hepatitis C carrier Current Visit: No Comment: untreated (9) Drug withdrawal seizure Current Visit: No Qualifiers: Complication of substance-induced condition: uncomplicated Qualified Code(s ): F19.230 - Other psychoactive substance dependence with withdrawal, uncomplicated Initial treatment plan: Patient is discharged today and referred to [facility] for [facility] agent residential treatment
[2017-11-16 07:03] VITALS: BP 112/77; PULSE 87; TEMP 98.4
[2017-11-16] MEDS: CYCLOBENZAPRINE HCL 5 MG TABLET PO PRN (07:20)
[2017-11-16] MEDS: IBUPROFEN 400 MG TABLET (FP) PO PRN (07:20)
== END 2017-11-16 08:50 | disposition home or self-care (01) | DRG 772 ==
LOC: YASAS 14:26 → Y3W 14:27
PROVIDERS: ADMIT Psychiatry & Neurology Psychiatry; ATTEND Psychiatry & Neurology Psychiatry
PROC: HZ42ZZZ Group Counseling for Substance Abuse Treatment, Cognitive-Behavioral (ICD-10-PCS; principal; 2017-11-03)
DX: F11.20 Opioid dependence, uncomplicated (principal); F10.20 Alcohol dependence, uncomplicated; F14.20 Cocaine dependence, uncomplicated; F17.210 Nicotine dependence, cigarettes, uncomplicated; F31.9 Bipolar disorder, unspecified; F19.24 Other psychoactive substance dependence with psychoactive substance-induced mood disorder; F19.282 Other psychoactive substance dependence with psychoactive substance-induced sleep disorder; B18.2 Chronic viral hepatitis C; G40.509 Epileptic seizures related to external causes, not intractable, without status epilepticus; Z59.0 Homelessness
CPT/HCPCS: 93005; 93010

== ENCOUNTER 2017-11-04 15:31 | Emergency (ER) | payer OTHER ==
[2017-11-04 16:09] VITALS: BP 106/55; PULSE 88; TEMP 98.9; BMI 25.9
--- NOTE | 2017-11-04 17:03 | PDOC ---
Attending Attestation - Resident Resident Name: Jazmine Mckenzie - ED Attending Attestation I have performed the following: I have examined & evaluated the patient, The case was reviewed & discussed with the resident, I agree w/resident's findings & plan, Exceptions are as noted - HPI HPI: 11/04/17 17:06 41y M hx of cocaine abuse presents with complaint of chest pain, pt notes the pain is sharp and radiates to the jaw. Pt states it lasts for minutes at time. Pt states the pain has been similar to what he has in the past that typically is sharp and radite to the jaw an dfrequently with exetion but notes he has seen a cardiolgoist for w orkup including echo and stress test that was negative. pt notes he is currently asymptmatic with complete resolution of his pain. Exam is unremarkable concern for cocaine cp will obtain trop x 2 ekg nsr here - Physicial Exam PE: GENERAL: The patient is awake, alert, and fully oriented, Nontoxic - in no acute distress. HEAD: Normocephalic, atraumatic. EYES: extraocular movements intact, sclera anicteric, conjunctiva clear. ENT: Normal voice, Moist mucous membranes. NECK: Normal range of motion, supple LUNGS: Breath sounds equal, clear to auscultation bilaterally. No wheezes, no rhonchi, no rales. HEART: Regular rate and rhythm, normal S1 and S2 without murmur, rub or gallop. ABDOMEN: Soft, nontender, . No guarding, no rebound. EXTREMITIES: Normal range of motion, no edema. NEUROLOGICAL: No facial assymetry, Normal speech, PSYCH: Normal mood, normal affect. SKIN: Warm, Dry, normal turgor, - Medical Decision Making 11/06/17 05:16 see above Heart Score/ECG Review - ECG Impressions Comment:: 11/04/17 17:16 Twelve-lead EKG was performed and reviewed by me. There is normal sinus rhythm with a normal rate. Rate of 80 The axis is normal. The intervals are normal. There is normal R wave progression There are no ST or T wave abnormalities. Impression: Normal twelve-lead EKG
[2017-11-04 17:09] LABS: BASO % 0.4 % (0-2.0); EOS % 2.3 % (0-4.5); HEMATOCRIT 35.6 % (35.4-49); HEMOGLOBIN 12.4 GM/dL (11.7-16.9); LYMPH % 16.5 % (8-40); MCH 31.4 pg (25.7-33.7); MCHC 34.9 g/dl (32.0-35.9); MEAN CELL VOLUME 89.9 fl (80-96); MEAN PLT VOLUME 8.8 fl (7.5-11.1); MONO % 5.8 % (3.8-10.2); PLATELET COUNT 194 K/MM3 (134-434); RBC 3.96 M/mm3 (4.00-5.60); RDW 14.6 % (11.9-15.9); WHITE BLOOD COUNT 7.9 K/mm3 (4.0-10.0)
[2017-11-04 17:39] LABS: ALBUMIN 3.5 g/dl (3.4-5.0); ANION GAP 4 (8-16); BLOOD UREA NITROGEN 13 mg/dL (7-18); CALCIUM 8.5 mg/dL (8.5-10.1); CHLORIDE 103 mmol/L (98-107); CO2 29 mmol/L (21-32); CREATININE 0.8 mg/dL (0.7-1.3); GLUCOSE,RANDOM 98 mg/dL (74-106); POTASSIUM 4.4 mmol/L (3.5-5.1); SGOT/AST 89 U/L (15-37); SGPT/ALT 209 U/L (12-78); SODIUM 136 mmol/L (136-145); TOT PROT 7.7 g/dl (6.4-8.2)
[2017-11-04 17:41] LABS: ALK PHOS 123 U/L (45-117)
[2017-11-04 17:42] LABS: BILIRUBIN,TOTAL < 0.1 mg/dL (0.2-1.0)
--- NOTE | 2017-11-04 18:14 | PDOC ---
History of Present Illness - General Chief Complaint: Chest Pain Stated Complaint: CHEST PAIN Time Seen by Provider: 11/04/17 16:15 History Source: Patient - History of Present Illness Initial Comments: 11/04/17 18:14 Patient is a 41 y.o. male with a PMH of substance (cocaine and alcohol) who presents from [facility] with resolved chest pain. Chest pain started earlier today while patient was ambulating and was substernal, 10/10, "squeezing" and "sharp" and radiated to his jaw. Patient denies any associated shortness of breath, lightheadedness, diaphoresis. Patient notes he felt a similar pain last week while ambulating. Patient notes a prior evaluation earlier this calendar year at [facility] that included a negative stress test and echocardiogram. Patient denies any fevers/chills, nausea/vomiting, diarrhea/constipation, recent travel or sick contacts. Past History - Past Medical History Allergies/Adverse Reactions: Allergies Allergy/AdvReac Type Severity Reaction Status Date / Time No Known Allergies Allergy Verified 11/04/17 16:09 Home Medications: Ambulatory Orders Citalopram Hydrobromide [Celexa -] 10 mg PO DAILY #30 tablet 10/31/17 Olanzapine [Zyprexa] 20 mg PO HS #30 tablet 10/31/17 Anemia: No Asthma: No Cancer: No Cardiac Disorders: No CVA: No COPD: No CHF: No DVT: No Dementia: No Diabetes: No GI Disorders: No Disorders: No HTN: No Hypercholesterolemia: No Kidney Stones: No Liver Disease: No Seizures: No Thyroid Disease: No Other medical history: etoh,cocaine abuse - Surgical History Abdominal Surgery: No Appendectomy: No Cardiac Surgery: No Cholecystectomy: No Lung Surgery: No Neurologic Surgery: No Orthopedic Surgery: No - Reproductive History Testicular Surgery: No - Suicide/Smoking/Psychosocial Hx Smoking History: Unknown if ever smoked Have you smoked in the past 12 months: Yes Number of Cigarettes Smoked Daily: 0 Cigars Per Day: 0 'Breaking Loose' booklet given: 10/30/17 (give on floor) Hx Alcohol Use: Yes Drug/Substance Use Hx: Yes (10 previous inpt detox admissions @ [facility]) Substance Use Type: Alcohol, Cocaine Hx Substance Use Treatment: Yes (Currently attends [facility]) Review of Systems - Review of Systems Constitutional: No: Chills, Fever HEENTM: No: Recent change in vision Respiratory: No: Cough, Shortness of Breath Cardiac (ROS): Yes: Chest Tightness. No: Lightheadedness, Palpitations, Syncope ABD/GI: No: Constipated, Diarrhea, Nausea, Vomiting : No: Burning, Dysuria *Physical Exam - Vital Signs Last Vital Signs Temp Pulse Resp BP Pulse Ox 98.9 F 88 16 106/55 95 11/04/17 16:05 11/04/17 16:05 11/04/17 16:05 11/04/17 16:05 11/04/17 16:05 - Physical Exam General Appearance: Yes: Nourished, Appropriately Dressed HEENT: positive: EOMI, PRIMITIVO, Excessive drooling Neck: positive: Supple Respiratory/Chest: positive: Lungs Clear Cardiovascular: positive: S1, S2. negative: Edema, JVD Gastrointestinal/Abdominal: positive: Normal Bowel Sounds, Soft Musculoskeletal: negative: CVA Tenderness (R), CVA Tenderness (L) Extremity: positive: Normal Capillary Refill, Normal Range of Motion Integumentary: positive: Normal Color, Dry, Warm Neurologic: positive: Fully Oriented, Alert ED Treatment Course - LABORATORY CBC & Chemistry Diagram: 11/04/17 16:04 11/04/17 15:48 - ADDITIONAL ORDERS Additional order review: Laboratory Results 11/04/17 15:48 Sodium 136 Potassium 4.4 Chloride 103 Carbon Dioxide 29 Anion Gap 4 L BUN 13 D Creatinine 0.8 D Creat Clearance w eGFR > 60 Random Glucose 98 D Calcium 8.5 Total Bilirubin < 0.1 L D AST 89 H D ALT 209 H D Alkaline Phosphatase 123 H D Creatine Kinase 69 Troponin I < 0.02 Total Protein 7.7 Albumin 3.5 11/04/17 16:04 RBC 3.96 L MCV 89.9 MCHC 34.9 RDW 14.6 MPV 8.8 Neutrophils % 75.0 D Lymphocytes % 16.5 D Monocytes % 5.8 Eosinophils % 2.3 Basophils % 0.4 Medical Decision Making - Medical Decision Making 11/04/17 18:19 41 year old male presents with resolved exertional chest pain. H/o cocaine and alcohol abuse, last admitted use 1 week previous. DDx includes r/o ACS, angina vs. cocaine induced MD. Will obtain Troponin x2, ECG. Planned disposition is discharge to [facility] pending Troponin. 11/04/17 19:04 Troponin (-) x1. EKG shows NSR HR 80 with no deviations, normal interval. Good R wave progression V1-V6, no NIMISHA/STD. Non-ischemic ECG. 11/04/17 19:07 Second Troponin pending. Patient signed out to Dr. Corley (Resident) and Dr. Berrois (Attending) with planned disposition return to detox if 2nd Troponin negative. *DC/Admit/Observation/Transfer Diagnosis at time of Disposition: Chest pain - Referrals - Patient Instructions - Post Discharge Activity
--- NOTE | 2017-11-04 19:34 | PDOC ---
*Physical Exam - Vital Signs Last Vital Signs Temp Pulse Resp BP Pulse Ox 98.9 F 88 16 106/55 95 11/04/17 16:05 11/04/17 16:05 11/04/17 16:05 11/04/17 16:05 11/04/17 16:05 ED Treatment Course - LABORATORY CBC & Chemistry Diagram: 11/04/17 16:04 11/04/17 15:48 - ADDITIONAL ORDERS Additional order review: Laboratory Results 11/04/17 15:48 Sodium 136 Potassium 4.4 Chloride 103 Carbon Dioxide 29 Anion Gap 4 L BUN 13 D Creatinine 0.8 D Creat Clearance w eGFR > 60 Random Glucose 98 D Calcium 8.5 Total Bilirubin < 0.1 L D AST 89 H D ALT 209 H D Alkaline Phosphatase 123 H D Creatine Kinase 69 Troponin I < 0.02 Total Protein 7.7 Albumin 3.5 11/04/17 16:04 RBC 3.96 L MCV 89.9 MCHC 34.9 RDW 14.6 MPV 8.8 Neutrophils % 75.0 D Lymphocytes % 16.5 D Monocytes % 5.8 Eosinophils % 2.3 Basophils % 0.4 Medical Decision Making - Medical Decision Making 11/04/17 19:33 The patient was signed out to me by Dr. Mckenzie, day team. The patient is a 41M who presents with CP currently being worked up. Second troponin sent and pending. Disposition based on results of troponin. 11/04/17 20:09 Repeat troponin negative. Pt will be sent back to [facility] for rehab. *DC/Admit/Observation/Transfer Diagnosis at time of Disposition: Chest pain Qualifiers: Chest pain type: unspecified Qualified Code(s): R07.9 - Chest pain, unspecified - Discharge Dispostion Disposition: HOME Condition at time of disposition: Stable Admit: No - Referrals - Patient Instructions Printed Discharge Instructions: DI for Chest Pain Additional Instructions: Please return to the ER if you have any signs or symptoms of chest pain, shortness of breath, uncontrollable fever, chills, nausea, vomiting, numbness, tingling, or weakness in any part of your body, changes in vision, or slurred speech. Please follow up with your primary care physician in 2-3 days. Please return to the ER if symptoms persist, worsen, or new symptoms arise. - Post Discharge Activity
[2017-11-04] MEDS ORDERED: SODIUM CHLORIDE 1,000 ML IV STA (20:01)
--- NOTE | 2017-11-05 09:57 | EKG ---
Test Reason : Blood Pressure : / mmHG Vent. Rate : 080 BPM Atrial Rate : 080 BPM P-R Int : 120 ms QRS Dur : 084 ms QT Int : 364 ms P-R-T Axes : 022 -19 024 degrees QTc Int : 419 ms NORMAL SINUS RHYTHM NORMAL ECG WHEN COMPARED WITH ECG OF 04-NOV-2017 15:46, NO SIGNIFICANT CHANGE WAS FOUND Confirmed by SLOAN SHARMA MD ([id number]) on 11/05/2017 9:56:59 AM Referred By: Confirmed By:SLOAN SHARMA MD
--- NOTE | 2017-11-05 09:58 | EKG ---
Test Reason : Blood Pressure : / mmHG Vent. Rate : 081 BPM Atrial Rate : 081 BPM P-R Int : 128 ms QRS Dur : 080 ms QT Int : 358 ms P-R-T Axes : 029 -12 029 degrees QTc Int : 415 ms NORMAL SINUS RHYTHM NORMAL ECG WHEN COMPARED WITH ECG OF 04-NOV-2017 14:27, NO SIGNIFICANT CHANGE WAS FOUND Confirmed by SLOAN SHARMA MD ([id number]) on 11/05/2017 9:57:35 AM Referred By: Confirmed By:SLOAN SHARMA MD
== END 2017-11-04 20:54 | disposition home or self-care (01) ==
LOC: JER 15:31
PROC: 3E0337Z Introduction of Electrolytic and Water Balance Substance into Peripheral Vein, Percutaneous Approach (ICD-10-PCS; principal; 2017-11-04)
DX: R07.89 Other chest pain (principal); F10.10 Alcohol abuse, uncomplicated; F14.10 Cocaine abuse, uncomplicated
CPT/HCPCS: 36415; 80053; 82550; 84484; 85025; 93005; 93010; 99281-25; J7030

== ENCOUNTER 2018-05-02 13:24 | Inpatient (IN) | payer OTHER ==
[2018-05-02 13:59] VITALS: BMI 25.7
--- NOTE | 2018-05-02 15:22 | HP ---
CIWA Score - CIWA Score Nausea/Vomitin Muscle Tremors: 3 Anxiety: 2 Agitation: 2 Paroxysmal Sweats: 1-Minimal Palms Moist Orientation: 0-Oriented Tacttile Disturbances: 1-Very Mild Itch/Numbness Auditory Disturbances: 1-Very Mild Visual Disturbances: 1-Very Mild Sensitivity Headache: 2-Mild CIWA-Ar Total Score: 16 Admission ROS BHS - HPI Chief Complaint: i need help to stop drinking alcohol,cocaine,xanax,mmtp 65 mgs/day,last medicated today Allergies/Adverse Reactions: Allergies Allergy/AdvReac Type Severity Reaction Status Date / Time No Known Allergies Allergy Verified 05/02/18 14:31 History of Present Illness: this 42 years old male with alcohol,cocaine,xanax dependence,mmtp 65mg/day,last medicated today, hepatitis c nicotine dependence bipolar disorder multiple admissions in the past longest period of sobriety 1 year Exam Limitations: No Limitations - Ebola screening Have you traveled outside of the country in the last 21 days: No Have you had contact with anyone from an Ebola affected area: No Have you been sick,other than usual withdrawal symptoms: No Do you have a fever: No - Review of Systems Constitutional: Loss of Appetite, Malaise, Night Sweats, Changes in sleep, Weakness, Unintentional Wgt. Loss EENT: reports: Nose Congestion Respiratory: reports: No Symptoms reported GI: reports: Nausea, Vomiting, Abdominal cramping Musculoskeletal: reports: Back Pain, Muscle Pain Integumentary: reports: Dryness Endocrine: reports: No Symptoms Reported Hematology: reports: No Symptoms Reported Psychiatric: reports: No Sypmtoms Reported, Judgement Intact, Mood/Affect Appropiate, Anxious, Depressed (bipolar disorder,insomnia) Patient History - Patient Medical History Hx Anemia: No Hx Asthma: No Hx Chronic Obstructive Pulmonary Disease (COPD): No Hx Cancer: No Hx Cardiac Disorders: No Hx Congestive Heart Failure: No Hx Hypertension: No Hx Hypercholesterolemia: No Hx Pacemaker: No HX Cerebrovascular Accident: No Hx Seizures: No Hx Dementia: No Hx Diabetes: No Hx Gastrointestinal Disorders: No Hx Liver Disease: No Hx Genitourinary Disorders: No Hx Sexually Transmitted Disorders: No Hx Renal Disease (ESRD): No Hx Thyroid Disease: No Hx Human Immunodeficiency Virus (HIV): No Hx Hepatitis C: Yes (1996- never treated) Hx Depression: Yes Hx Suicide Attempt: No Hx Bipolar Disorder: Yes Hx Schizophrenia: No Other Medical History: no suicidal,no homicidal - Patient Surgical History Past Surgical History: No Hx Neurologic Surgery: No Hx Cataract Extraction: No Hx Cardiac Surgery: No Hx Lung Surgery: No Hx Breast Surgery: No Hx Breast Biopsy: No Hx Abdominal Surgery: No Hx Appendectomy: No Hx Cholecystectomy: No Hx Genitourinary Surgery: No Hx Section: No Hx Orthopedic Surgery: No Anesthesia Reaction: No - PPD History Previous Implant?: Yes Documented Results: Negative w/proof Implanted On Prior [facility] Admission?: Yes Date: 11/01/17 Results: 0 mm PPD to be Administered?: No - Smoking Cessation Smoking history: Former smoker Have you smoked in the past 12 months: Yes Aproximately how many cigarettes per day: 20 If you are a former smoker, when did you quit?: 6 mos. ago Cigars Per Day: 0 Hx Chewing Tobacco Use: No Initiated information on smoking cessation: Yes 'Breaking Loose' booklet given: 05/02/18 - Substance & Tx. History Hx Alcohol Use: Yes Hx Substance Use: Yes Substance Use Type: Alcohol, Cocaine, Heroin, Tranquilizers Hx Substance Use Treatment: Yes ([facility] 01/12/18 to 01/16/18) - Substances Abused Heroin Route: Injection Frequency: Daily Amount used: 4 bags Age of first use: 13 Date of Last Use: 05/01/18 Cocaine Route: Injection Frequency: Daily Amount used: $100 Age of first use: 13 Date of Last Use: 05/01/18 Alcohol-beer Route: Oral Frequency: Daily Amount used: 1-6 pk. Age of first use: 13 Date of Last Use: 05/02/18 Xanax Route: Oral Frequency: Daily Amount used: 8 mg. Age of first use: 22 Date of Last Use: 05/01/18 Family Disease History - Family Disease History Family Disease History: Heart Disease: Father (, ALCOHOL), Mother ( , ), Brother (six - living), Sister (three - living ), Other: Father, Mother, Brother, Sister, Daughter (two - ages 16 and 20, healthy) Admission Physical Exam BHS - Vital Signs Vital Signs: Vital Signs - 24 hr 05/02/18 13:56 Temperature 98.3 F Pulse Rate 81 Respiratory 18 Rate Blood Pressure 131/87 - Physical General Appearance: Yes: Moderate Distress, Tremorous, Irritable, Sweating, Anxious HEENTM: Yes: Within Normal Limits, PRIMITIVO, Pharynx Normal Respiratory: Yes: Lungs Clear, Normal Breath Sounds, No Respiratory Distress Neck: Yes: Within Normal Limits, Supple, Trachea in good position Breast: Yes: Within Normal Limits Cardiology: Yes: Within Normal Limits, Regular Rhythm, Regular Rate, S1, S2 Abdominal: Yes: Within Normal Limits, Normal Bowel Sounds, Soft Genitourinary: Yes: Within Normal Limits Back: Yes: Within Normal Limits, Normal Inspection, Muscle Spasm Musculoskeletal: Yes: full range of Motion, Back pain, Joint Stiffness, Muscle Pain Extremities: Yes: Normal Range of Motion, Tremors Neurological: Yes: Within Normal Limits, pipeline controller II-XII NML intact, Alert, Motor Strength 5/5 Integumentary: Yes: Dry Lymphatic: Yes: Within Normal Limits - Diagnostic (1) Alcohol dependence with uncomplicated withdrawal Current Visit: No Status: Acute (2) Cocaine dependence Current Visit: No Status: Acute Qualifiers: Substance use status: uncomplicated Qualified Code(s): F14.20 - Cocaine dependence, uncomplicated (3) Uncomplicated sedative, hypnotic or anxiolytic withdrawal Current Visit: No Status: Acute (4) Weight loss Current Visit: No Status: Acute (5) Bipolar disorder Current Visit: No Status: Chronic (6) Nicotine dependence Current Visit: No Status: Chronic Comment: intermittent use (7) Opioid dependence on agonist therapy Current Visit: No Status: Chronic (8) Hepatitis C Current Visit: Yes Status: Acute Cleared for Admission [facility] - Detox or Rehab [facility] Level of Care: Medically Managed Detox Regimen/Protocol: Librium [facility] Breath Alcohol Content Breath Alcohol Content: 0.064 Urine Drug Screen - Results Drug Screen Negative: No Urine Drug Screen Results: WILLIAM-Cocaine, BZO-Benzodiazepines, MTD-Methadone
[2018-05-02] MEDS ORDERED: hydrOXYzine PAMOATE 25 MG CAPSULE (FP) PO PRN (15:31)
[2018-05-02] MEDS ORDERED: P-EPHED 60MG/TRIPROLIDI 2.5MG TABLET PO PRN (15:31)
[2018-05-02] MEDS ORDERED: MAG HYDROX/AL HYDROX/SIMETH 30 ML UNIT-DOSE CUP PO PRN (15:31)
[2018-05-02] MEDS ORDERED: MENTHOL/PHENOL 1 EACH UD MM PRN (15:31)
[2018-05-02] MEDS ORDERED: chlordiazePOXIDE HCL 25 MG CAPSULE PO PRN (15:31)
[2018-05-02] MEDS ORDERED: ACETAMINOPHEN 325 MG TABLET (FP) PO PRN (15:31)
[2018-05-02] MEDS ORDERED: MAGNESIUM HYDROX 2400MG/30ML ORAL SUSPENSION 30 ML CUP PO PRN (15:31)
[2018-05-02] MEDS ORDERED: guaiFENesin/D-METHORPHAN HB 10 ML UNIT-DOSE CUPS PO PRN (15:31)
[2018-05-02] MEDS ORDERED: MAGNESIUM CITRATE 300 ML BOTTLE PO PRN (15:31)
[2018-05-02] MEDS: chlordiazePOXIDE HCL 25 MG CAPSULE PO SCH ×2 (17:04→22:11)
[2018-05-02] MEDS: THIAMINE HCL 100 MG TABLET (FP) PO SCH (22:10)
[2018-05-02] MEDS: MELATONIN 5 MG TABLETS PO PRN (22:11)
[2018-05-02 23:08] LABS: URINE APPEARANCE CLEAR; URINE BILIRUBIN NEGATIVE (<2.0 mg/dL); URINE COLOR YELLOW; URINE GLUCOSE (UA) NEGATIVE (NEGATIVE); URINE KETONE NEGATIVE (NEGATIVE); URINE LEUK ESTERASE NEGATIVE (NEGATIVE); URINE NITRITE NEGATIVE (NEGATIVE); URINE PROTEIN NEGATIVE (NEGATIVE); URINE UROBILINOGEN NEGATIVE mg/dL (0.2-1.0)
[2018-05-03] MEDS ORDERED: METHADONE HCL 10 MG TABLET ONE (04:37)
[2018-05-03] MEDS ORDERED: METHADONE HCL 5 MG TABLET ONE (04:37)
[2018-05-03] MEDS ORDERED: METHADONE HCL 40 MG DISPERSABLE TABLET ONE (04:38)
[2018-05-03] MEDS: METHADONE 40 MG, METHADONE 20 MG, METHADONE 5 MG PO SCH (05:14)
[2018-05-03] MEDS: chlordiazePOXIDE HCL 25 MG CAPSULE PO SCH ×4 (05:14→22:19)
[2018-05-03] MEDS ORDERED: METHADONE HCL 40 MG DISPERSABLE TABLET PO SCH (06:00)
[2018-05-03] MEDS: PRENATAL VITAMINS W/ FOLIC ACID TABLET (FP) PO SCH (10:22)
[2018-05-03 10:40] LABS: HEMATOCRIT 39.2 % (35.4-49); HEMOGLOBIN 12.8 GM/dL (11.7-16.9); MCH 29.8 pg (25.7-33.7); MCHC 32.6 g/dl (32.0-35.9); MEAN CELL VOLUME 91.5 fl (80-96); PLATELET COUNT 196 K/MM3 (134-434); RBC 4.29 M/mm3 (4.00-5.60); RDW 14.7 % (11.9-15.9); WHITE BLOOD COUNT 5.5 K/mm3 (4.0-10.0)
--- NOTE | 2018-05-03 11:02 | EKG ---
Test Reason : Blood Pressure : / mmHG Vent. Rate : 058 BPM Atrial Rate : 058 BPM P-R Int : 142 ms QRS Dur : 084 ms QT Int : 428 ms P-R-T Axes : 058 -01 032 degrees QTc Int : 420 ms SINUS BRADYCARDIA POSSIBLE LEFT ATRIAL ENLARGEMENT BORDERLINE ECG Confirmed by MD JEREMIAS, STEVE (2012) on 05/03/2018 11:02:17 AM Referred By: Confirmed By:STEVE MCDOWELL MD
[2018-05-03 11:24] LABS: ALBUMIN 3.5 g/dl (3.4-5.0); ALK PHOS 97 U/L (45-117); ANION GAP 11 MMOL/L (8-16); BILIRUBIN,TOTAL 0.2 mg/dL (0.2-1); BLOOD UREA NITROGEN 6 mg/dL (7-18); CALCIUM 9.2 mg/dL (8.5-10.1); CHLORIDE 104 mmol/L (98-107); CO2 26 mmol/L (21-32); CREATININE 1.1 mg/dL (0.55-1.3); GLUCOSE,RANDOM 96 mg/dL (74-106); POTASSIUM 4.9 mmol/L (3.5-5.1); SGOT/AST 64 U/L (15-37); SGPT/ALT 80 U/L (13-61); SODIUM 141 mmol/L (136-145); TOT PROT 7.6 g/dl (6.4-8.2)
--- NOTE | 2018-05-03 11:25 | PN ---
S CIWA - CIWA Score Nausea/Vomitin-No Nausea/No Vomiting Muscle Tremors: None Anxiety: 1-Mildly Anxious Agitation: 0-Normal Activity Paroxysmal Sweats: No Perspiration Orientation: 0-Oriented Tacttile Disturbances: 0-None Auditory Disturbances: 0-None Visual Disturbances: 0-None Headache: 2-Mild CIWA-Ar Total Score: 3 BHS Progress Note (SOAP) Subjective: PATIENT MILDLY ANXIOUS AND C/O HEADACHE. Objective: 05/03/18 11:22 Laboratory Tests 05/02/18 05/02/18 05/03/18 15:00 Unknown 06:00 WBC 5.5 RBC 4.29 Hgb 12.8 Hct 39.2 MCV 91.5 MCH 29.8 MCHC 32.6 RDW 14.7 Plt Count 196 MPV 11.0 D Urine Color Yellow Urine Appearance Clear Urine pH 6.0 Ur Specific [place] 1.010 Urine Protein Negative Urine Glucose (UA) Negative Urine Ketones Negative Urine Blood Negative Urine Nitrite Negative Urine Bilirubin Negative Urine Urobilinogen Negative Ur Leukocyte Esterase Negative HIV 1&2 Antibody Screen Negative HIV P24 Antigen Negative Vital Signs Temperature 98.6 F 05/03/18 09:38 Pulse Rate 78 05/03/18 09:38 Respiratory Rate 18 05/03/18 09:38 Blood Pressure 102/73 05/03/18 09:38 O2 Sat by Pulse Oximetry (%) ALERT AND ORIENTED SKIN WARM AND DRY CAR S1S2 RESP CTA BL EXT NO EDEMA, FULL ROM PSYCH + ANXIETY NEURO: CRANIAL NERVES 1-X11 GROSSLY INTACT Assessment: 05/03/18 11:23 A/P: WITHDRAWAL SYNDROME Plan: CONTINUE DETOX PER PROTOCOL ENCOURAGE ORAL FLUIDS CONTINUE TO MONITOR CLINICALLY
[2018-05-03] MEDS ORDERED: FLU VACCINE QUAD 60 MCG/0.5 ML (MDV 18-19) IM ONE (12:00)
--- NOTE | 2018-05-03 14:53 | CONSULT ---
[facility] Psychiatric Consult - Data Date of interview: 05/03/18 Admission source: [facility] Identifying data: This is one one of multiple admissions to [facility] for this 42 y/o [place] male self-referred for detoxification treatment (alcohol, opioid,xanax,cocaine).Admitted to [address] [place] [address].Patient is ,a father of two, undomiciled,unemployed and supported on Public Assistance. Substance Abuse History: Discussed in this interview.Refer to details in [facility] report as follows : Smoking history: Former smoker. Have you smoked in the past 12 months: Yes. Aproximately how many cigarettes per day: 20. If you are a former smoker, when did you quit?: 6 mos. ago. Cigars Per Day: 0. Hx Chewing Tobacco Use: No. Initiated information on smoking cessation: Yes. ' Breaking Loose' booklet given: 05/02/18. - Substance & Tx. History. Hx Alcohol Use: Yes. Hx Substance Use: Yes. Substance Use Type: Alcohol, Cocaine , Heroin, Tranquilizers. Hx Substance Use Treatment: Yes ([facility] 01/12/18 to 05/26). - Substances Abused. Heroin. Route: Injection. Frequency: Daily. Amount used: 4 bags. Age of first use: 13. Date of Last Use: 05/01/18. Cocaine. Route: Injection. Frequency: Daily. Amount used: $100. Age of first use: 13. Date of Last Use: 05/01/18. Alcohol-beer. Route: Oral. Frequency: Daily. Amount used: 1-6 pk. Age of first use: 13. Date of Last Use : 05/02/18. Xanax. Route: Oral. Frequency: Daily. Amount used: 8 mg. Age of first use: 22. Date of Last Use: 05/01/18 Medical History: Taken from chart because the patient suddenly ended the interview.Mr Godwin refused to provide information. Records indicate history of hepatitis C diagnosed in 1996, chronic lumbar pain (herniated disc), tinnitus ( bilateral) and benzodiazepine-related seizures. Patient still attends [facility] for methadone maintenance (65 mg/day). Psychiatric History: Taken from chart. Diagnosed with Bipolar Disorder since 2009. History of multiple psychiatric hospitalizations ([facility], [facility], [facility], [facility] and [facility]. According to records, the patient sees a psychiatrist at [facility] in the [place].Prescribed zyprexa 20 mg/ hs + celexa 10 mg/day. History of suicide attempts : no information at time of this examination. Physical/Sexual Abuse/Trauma History: No information. Additional Comment: Urine Drug Screen Results: WILLIAM-Cocaine, BZO-Benzodiazepines , MTD-Methadone.Noted. Mental Status Exam - Mental Status Exam Alert and Oriented to: Time, Place, Person Cognitive Function: Grossly Intact Patient Appearance: Unkempt, Disheveled Mood: Angry, Hostile, Withdrawn, Irritable Affect: Mood Congruent Patient Behavior: Fatigued, Uncooperative, Impulsive Speech Pattern: Clear Voice Loudness: Normal Thought Process: Goal Oriented Thought Disorder: Not Present Hallucinations: None Suicidal Ideation: None Homicidal Ideation: None Insight/Judgement: Poor Sleep: Well Appetite: Good (as evidenced by empty tray at bedside) Gait/Station: Normal Psychiatric Findings - Problem List ([place] 1, 2,3) (1) Opioid dependence on agonist therapy Current Visit: Yes Status: Acute (2) Alcohol dependence with uncomplicated withdrawal Current Visit: Yes Status: Acute (3) Cocaine dependence Current Visit: Yes Status: Acute Qualifiers: Substance use status: uncomplicated Qualified Code(s): F14.20 - Cocaine dependence, uncomplicated (4) Uncomplicated sedative, hypnotic or anxiolytic withdrawal Current Visit: Yes Status: Acute (5) Nicotine dependence Current Visit: Yes Status: Acute Comment: intermittent use (6) Bipolar disorder Current Visit: Yes Status: Chronic Comment: As per records.Patient refused to provide information in this interview. (7) Substance induced mood disorder Current Visit: Yes Status: Acute - Initial Treatment Plan Initial Treatment Plan: Psychoeducation.Sleep hygiene.Detoxification.Review of pharmacy claims indicates no activity since 11/2017 (no refills).Will observe without medications (patient refused to talk to diet consultant).
[2018-05-03] MEDS: THIAMINE HCL 100 MG TABLET (FP) PO SCH (22:19)
[2018-05-03] MEDS: MELATONIN 5 MG TABLETS PO PRN (22:19)
[2018-05-04] MEDS ORDERED: METHADONE HCL 40 MG DISPERSABLE TABLET ONE (04:46)
[2018-05-04] MEDS ORDERED: METHADONE HCL 5 MG TABLET ONE (04:46)
[2018-05-04] MEDS ORDERED: METHADONE HCL 10 MG TABLET ONE (04:46)
[2018-05-04] MEDS: METHADONE 40 MG, METHADONE 20 MG, METHADONE 5 MG PO SCH (05:20)
[2018-05-04] MEDS: chlordiazePOXIDE HCL 25 MG CAPSULE PO SCH ×2 (05:20→10:19)
[2018-05-04] MEDS: LOPERAMIDE HCL 2 MG CAPSULE PO PRN (05:58)
[2018-05-04] MEDS: PRENATAL VITAMINS W/ FOLIC ACID TABLET (FP) PO SCH (10:19)
[2018-05-04] MEDS: HYDROCORTISONE 0.5% TOPICAL CREAM 30 GM TUBE TP SCH ×2 (13:04→22:37)
[2018-05-04] MEDS: chlordiazePOXIDE 5 MG CAPSULE PO SCH ×2 (17:29→22:15)
--- NOTE | 2018-05-04 22:11 | PN ---
S CIWA - CIWA Score Nausea/Vomitin-No Nausea/No Vomiting Muscle Tremors: None Anxiety: 0-No Anxiety, at Ease Agitation: 0-Normal Activity Paroxysmal Sweats: 2 Orientation: 0-Oriented Tacttile Disturbances: 0-None Auditory Disturbances: 0-None Visual Disturbances: 0-None Headache: 0-None Present CIWA-Ar Total Score: 2 BHS Progress Note (SOAP) Subjective: PATIENT C/O COLD SWEATS AND RASH TO FACE. Objective: 05/04/18 22:07 Laboratory Tests 05/02/18 05/02/18 05/03/18 15:00 Unknown 06:00 WBC 5.5 RBC 4.29 Hgb 12.8 Hct 39.2 MCV 91.5 MCH 29.8 MCHC 32.6 RDW 14.7 Plt Count 196 MPV 11.0 D Sodium Potassium Chloride Carbon Dioxide Anion Gap BUN Creatinine Creat Clearance w eGFR Random Glucose Calcium Total Bilirubin AST ALT Alkaline Phosphatase Total Protein Albumin Urine Color Yellow Urine Appearance Clear Urine pH 6.0 Ur Specific [place] 1.010 Urine Protein Negative Urine Glucose (UA) Negative Urine Ketones Negative Urine Blood Negative Urine Nitrite Negative Urine Bilirubin Negative Urine Urobilinogen Negative Ur Leukocyte Esterase Negative RPR Titer HIV 1&2 Antibody Screen Negative HIV P24 Antigen Negative 05/03/18 05/03/18 06:00 06:00 WBC RBC Hgb Hct MCV MCH MCHC RDW Plt Count MPV Sodium 141 Potassium 4.9 Chloride 104 Carbon Dioxide 26 Anion Gap 11 BUN 6 L Creatinine 1.1 Creat Clearance w eGFR > 60 Random Glucose 96 Calcium 9.2 Total Bilirubin 0.2 AST 64 H ALT 80 H Alkaline Phosphatase 97 Total Protein 7.6 Albumin 3.5 Urine Color Urine Appearance Urine pH Ur Specific [place] Urine Protein Urine Glucose (UA) Urine Ketones Urine Blood Urine Nitrite Urine Bilirubin Urine Urobilinogen Ur Leukocyte Esterase RPR Titer Nonreactive HIV 1&2 Antibody Screen HIV P24 Antigen PE: ALERT AND ORIENTED SKIN WARM AND MOIST. +MACULAR-RED RASH ON CHEEKS CAR S1S2 RESP CTA BL EXT NO EDEMA Assessment: 05/04/18 22:10 WITHDRAWAL SYNDROME Plan: CONTINUE DETOX ENCOURAGE ORAL FLUIDS HYDROCORTISONE CREAM ORDERED FOR FACIAL RASH CONTINUE TO MONITOR CLINICALLY
[2018-05-04] MEDS: THIAMINE HCL 100 MG TABLET (FP) PO SCH (22:15)
[2018-05-04] MEDS: MELATONIN 5 MG TABLETS PO PRN (22:16)
[2018-05-05] MEDS ORDERED: METHADONE HCL 5 MG TABLET ONE (04:31)
[2018-05-05] MEDS ORDERED: METHADONE HCL 10 MG TABLET ONE (04:31)
[2018-05-05] MEDS ORDERED: METHADONE HCL 40 MG DISPERSABLE TABLET ONE (04:32)
[2018-05-05] MEDS: METHADONE 40 MG, METHADONE 20 MG, METHADONE 5 MG PO SCH (05:26)
[2018-05-05] MEDS: chlordiazePOXIDE 5 MG CAPSULE PO SCH ×2 (05:26→10:03)
[2018-05-05] MEDS: IBUPROFEN 400 MG TABLET (FP) PO PRN (05:45)
[2018-05-05] MEDS: LOPERAMIDE HCL 2 MG CAPSULE PO PRN (05:46)
[2018-05-05] MEDS: HYDROCORTISONE 0.5% TOPICAL CREAM 30 GM TUBE TP SCH ×2 (10:02→22:18)
[2018-05-05] MEDS: PRENATAL VITAMINS W/ FOLIC ACID TABLET (FP) PO SCH (10:02)
--- NOTE | 2018-05-05 11:38 | PN ---
[facility] CIWA - CIWA Score Nausea/Vomitin Muscle Tremors: None Anxiety: 0-No Anxiety, at Ease Agitation: 0-Normal Activity Paroxysmal Sweats: No Perspiration Orientation: 0-Oriented Tacttile Disturbances: 0-None Auditory Disturbances: 0-None Visual Disturbances: 0-None Headache: 0-None Present CIWA-Ar Total Score: 2 S COWS - Scale Resting Pulse: 0= [place] 80 or Below Sweatin= No chills or Flushing Restless Observation: 0= Sits Still Pupil Size: 0= Normal to Room Light Bone or Joint Aches: 0= None Runny Nose/ Eye Tearin= None GI Upset > 30mins: 2= Nausea/Diarrhea Tremor Observation of Outstretched Hands: 0= None Yawning Observation: 0= None Anxiety or Irritability: 0= None Goose Flesh Skin: 0=Smooth Skin COWS Score: 2 [facility] Progress Note (SOAP) Subjective: Patient reports diarrhea x 2. Given Immodium but symptoms persist. Objective: 05/05/18 11:37 Vital Signs Temperature 96 F L 05/05/18 09:17 Pulse Rate 72 05/05/18 09:17 Respiratory Rate 20 05/05/18 09:17 Blood Pressure 96/68 05/05/18 09:17 O2 Sat by Pulse Oximetry (%) Laboratory Tests 05/02/18 05/02/18 05/03/18 15:00 Unknown 06:00 WBC 5.5 RBC 4.29 Hgb 12.8 Hct 39.2 MCV 91.5 MCH 29.8 MCHC 32.6 RDW 14.7 Plt Count 196 MPV 11.0 D Sodium Potassium Chloride Carbon Dioxide Anion Gap BUN Creatinine Creat Clearance w eGFR Random Glucose Calcium Total Bilirubin AST ALT Alkaline Phosphatase Total Protein Albumin Urine Color Yellow Urine Appearance Clear Urine pH 6.0 Ur Specific [place] 1.010 Urine Protein Negative Urine Glucose (UA) Negative Urine Ketones Negative Urine Blood Negative Urine Nitrite Negative Urine Bilirubin Negative Urine Urobilinogen Negative Ur Leukocyte Esterase Negative RPR Titer HIV 1&2 Antibody Screen Negative HIV P24 Antigen Negative 05/03/18 05/03/18 06:00 06:00 WBC RBC Hgb Hct MCV MCH MCHC RDW Plt Count MPV Sodium 141 Potassium 4.9 Chloride 104 Carbon Dioxide 26 Anion Gap 11 BUN 6 L Creatinine 1.1 Creat Clearance w eGFR > 60 Random Glucose 96 Calcium 9.2 Total Bilirubin 0.2 AST 64 H ALT 80 H Alkaline Phosphatase 97 Total Protein 7.6 Albumin 3.5 Urine Color Urine Appearance Urine pH Ur Specific [place] Urine Protein Urine Glucose (UA) Urine Ketones Urine Blood Urine Nitrite Urine Bilirubin Urine Urobilinogen Ur Leukocyte Esterase RPR Titer Nonreactive HIV 1&2 Antibody Screen HIV P24 Antigen pe: alert and oriented skin warm and dry car s1s2 resp cta bl gi soft BS+ nt Assessment: 05/05/18 11:37 diarrhea withdrawal syndrome Plan: continue detox immodium prn encourage oral fluids continue to monitor clinically
[2018-05-05] MEDS: chlordiazePOXIDE HCL 10 MG CAPSULE PO SCH ×2 (17:32→22:18)
[2018-05-05] MEDS: THIAMINE HCL 100 MG TABLET (FP) PO SCH (22:18)
[2018-05-05] MEDS: MELATONIN 5 MG TABLETS PO PRN (22:18)
[2018-05-06] MEDS ORDERED: METHADONE HCL 10 MG TABLET ONE (03:24)
[2018-05-06] MEDS ORDERED: METHADONE HCL 5 MG TABLET ONE (03:25)
[2018-05-06] MEDS ORDERED: METHADONE HCL 40 MG DISPERSABLE TABLET ONE (03:25)
[2018-05-06] MEDS: METHADONE 40 MG, METHADONE 20 MG, METHADONE 5 MG PO SCH (05:46)
[2018-05-06] MEDS: chlordiazePOXIDE HCL 10 MG CAPSULE PO SCH ×2 (05:48→10:25)
[2018-05-06 09:16] VITALS: BP 120/72; PULSE 88; TEMP 98
[2018-05-06] MEDS ORDERED: PANTOPRAZOLE 40 MG TABLET (FP) PO SCH (10:00)
[2018-05-06] MEDS: PRENATAL VITAMINS W/ FOLIC ACID TABLET (FP) PO SCH (10:24)
[2018-05-06] MEDS: HYDROCORTISONE 0.5% TOPICAL CREAM 30 GM TUBE TP SCH (10:24)
--- NOTE | 2018-05-06 11:11 | DS ---
[facility] Detox Discharge Summary Admission Date: 05/02/18 Discharge Date: 05/06/18 - History Present History: Alcohol Dependence, Sedative Dependence, MMTP - Physical Exam Results Vital Signs: Vital Signs Temperature 98.0 F 05/06/18 09:15 Pulse Rate 88 05/06/18 09:15 Respiratory Rate 18 05/06/18 09:15 Blood Pressure 120/72 05/06/18 09:15 O2 Sat by Pulse Oximetry (%) Pertinent Admission Physical Exam Findings: PATIENT TOLERATED DETOX WELL. MEDICALLY STABLE. IN NAD. AMBULATORY AD JOESPH. PATIENT DENIES SI/HI. PATIENT ACCEPTED REHAB REFERRAL AND TO BE TRANSFERRED TO [facility] [address] [place] [address]. - Treatment Hospital Course: Detox Protocol Followed, Detoxed Safely, Responded well, Discharged Condition Good, Rehab Referral Accepted - Medication Discharge Medications: Ambulatory Orders Citalopram Hydrobromide [Celexa -] 10 mg PO DAILY #30 tablet 10/31/17 Olanzapine [Zyprexa] 20 mg PO HS #30 tablet 11/16/17 - Diagnosis (1) Withdrawal syndrome Current Visit: Yes Status: Resolved Qualifiers: Substance type: sedative, hypnotic or anxiolytic Qualified Code(s): F13.239 - Sedative, hypnotic or anxiolytic dependence with withdrawal, unspecified - AMA Did Patient Leave Against Medical Advice: No
[2018-05-06] MEDS: IBUPROFEN 400 MG TABLET (FP) PO PRN (11:33)
== END 2018-05-06 12:35 | disposition other institution (70) | DRG 773 ==
LOC: YASAS 13:24 → Y3N 15:29
PROC: HZ2ZZZZ Detoxification Services for Substance Abuse Treatment (ICD-10-PCS; principal; 2018-05-02)
DX: F10.230 Alcohol dependence with withdrawal, uncomplicated (principal); F13.230 Sedative, hypnotic or anxiolytic dependence with withdrawal, uncomplicated; F14.20 Cocaine dependence, uncomplicated; F12.20 Cannabis dependence, uncomplicated; F11.20 Opioid dependence, uncomplicated; F31.9 Bipolar disorder, unspecified; F19.24 Other psychoactive substance dependence with psychoactive substance-induced mood disorder; B18.2 Chronic viral hepatitis C; R63.4 Abnormal weight loss; Z68.25 Body mass index [BMI] 25.0-25.9, adult; Z59.0 Homelessness
CPT/HCPCS: 36415; 80053; 81003; 85027; 86593; 87389; 93005; 93010

== ENCOUNTER 2018-05-06 12:44 | Inpatient (IN) | payer OTHER ==
--- NOTE | 2018-05-06 14:21 | HP ---
Psychiatrist Admission - Data Date of interview: 05/06/18 Admission source: [address] [place] [address] detox Identifying data: This is the second admission to [address] [place] [address] inpatient rehabilitation for this 42 years old H father of 2,homeless,supported by PA. Medical History: Significant for Hep C. Psychiatric History: patient has long and extaensive psychiatric history with multiple psychiatric hospitalizations.He was dx with Bipolar disorder in 2009.reports poor adherence to OPD care.He stopped to see his psychiatrist at [facility] clinic in the [place].he didnt restart psychotropic medications while in detox but willing to start it while in inpatient rehabilitation.patient startes that he didnt have any response to celexa and is not willing to try different SSRI at this time.Reports good result from Seroquel in the past. Physical/Sexual Abuse/Trauma History: denies Vital Signs: Vital Signs - 24 hr 05/06/18 14:04 Temperature 98.1 F Pulse Rate 79 Respiratory 18 Rate Blood Pressure 106/68 Allergies/Adverse Reactions: Allergies Allergy/AdvReac Type Severity Reaction Status Date / Time No Known Allergies Allergy Verified 05/06/18 13:49 Date of last physical exam: 05/06/18 Concur with the findings of this exam: Yes - Substance Abuse/Tx History Hx Alcohol Use: Yes (since 13 yo,a few 6 packs daily) Hx Substance Use: Yes (cocaine since 17,herin iv since 17 yo(mmtp65 mg)) Substance Use Type: Alcohol, Cocaine, Heroin, Tranquilizers Hx Substance Use Treatment: Yes (completed this program last year) Mental Status Exam - Mental Status Exam Alert and Oriented to: Time, Place, Person Cognitive Function: Grossly Intact Patient Appearance: Well Groomed Mood: Sad Affect: Mood Congruent, Labile Patient Behavior: Cooperative Speech Pattern: Clear Voice Loudness: Normal Thought Process: Goal Oriented Thought Disorder: Not Present Hallucinations: Denies Suicidal Ideation: Denies Homicidal Ideation: Denies Insight/Judgement: Fair Sleep: Fair Appetite: Good Muscle strength/Tone: Normal Gait/Station: Normal Psychiatric Findings - Problem List ([place] 1, 2,3) (1) Alcohol dependence Status: Chronic (2) Cocaine dependence Status: Chronic Qualifiers: (3) Anxiolytic dependence Status: Chronic (4) Bipolar disorder Status: Chronic Comment: As per records.Patient refused to provide information in this interview. 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
[2018-05-06] MEDS ORDERED: hydrOXYzine PAMOATE 50 MG CAPSULE (FP) PO PRN ×2 (14:28→14:36)
[2018-05-06] MEDS ORDERED: guaiFENesin/D-METHORPHAN HB 10 ML UNIT-DOSE CUPS PO PRN (14:36)
[2018-05-06] MEDS ORDERED: MENTHOL/PHENOL 1 EACH UD MM PRN (14:36)
[2018-05-06] MEDS ORDERED: MAGNESIUM HYDROX 2400MG/30ML ORAL SUSPENSION 30 ML CUP PO PRN (14:36)
[2018-05-06] MEDS ORDERED: IBUPROFEN 400 MG TABLET (FP) PO PRN (14:36)
[2018-05-06] MEDS ORDERED: MAGNESIUM CITRATE 300 ML BOTTLE PO PRN (14:36)
[2018-05-06] MEDS ORDERED: P-EPHED 60MG/TRIPROLIDI 2.5MG TABLET PO PRN (14:36)
[2018-05-06] MEDS ORDERED: ACETAMINOPHEN 325 MG TABLET (FP) PO PRN (14:36)
[2018-05-06] MEDS ORDERED: MAG HYDROX/AL HYDROX/SIMETH 30 ML UNIT-DOSE CUP PO PRN (14:36)
[2018-05-06] MEDS: ESCITALOPRAM OXALATE 10 MG TABLET (FP) PO SCH (15:54)
[2018-05-06] MEDS: HYDROCORTISONE 0.5% TOPICAL CREAM 30 GM TUBE TP SCH (21:35)
[2018-05-06] MEDS: THIAMINE HCL 100 MG TABLET (FP) PO SCH (21:36)
[2018-05-06] MEDS: MELATONIN 5 MG TABLETS PO PRN (21:36)
[2018-05-06] MEDS: QUEtiapine FUMARATE 50 MG TABLET PO SCH (21:36)
[2018-05-06] MEDS: OLANZapine 5 MG TABLET PO SCH (21:36)
[2018-05-07] MEDS ORDERED: METHADONE HCL 10 MG TABLET PO SCH (06:00)
[2018-05-07] MEDS ORDERED: METHADONE HCL 5 MG TABLET ONE (06:11)
[2018-05-07] MEDS ORDERED: METHADONE HCL 10 MG TABLET ONE (06:11)
[2018-05-07] MEDS ORDERED: METHADONE HCL 40 MG DISPERSABLE TABLET ONE (06:12)
[2018-05-07] MEDS: METHADONE 40 MG, METHADONE 20 MG, METHADONE 5 MG PO SCH (06:43)
[2018-05-07] MEDS: PRENATAL VITAMINS W/ FOLIC ACID TABLET (FP) PO SCH (10:53)
[2018-05-07] MEDS: PANTOPRAZOLE 40 MG TABLET (FP) PO SCH (10:54)
[2018-05-07] MEDS: ESCITALOPRAM OXALATE 10 MG TABLET (FP) PO SCH (10:54)
[2018-05-07] MEDS: LOPERAMIDE HCL 2 MG CAPSULE PO PRN ×2 (11:18→22:08)
[2018-05-07] MEDS: HYDROCORTISONE 0.5% TOPICAL CREAM 30 GM TUBE TP SCH ×2 (11:18→22:19)
[2018-05-07] MEDS: QUEtiapine FUMARATE 50 MG TABLET PO SCH (22:06)
[2018-05-07] MEDS: THIAMINE HCL 100 MG TABLET (FP) PO SCH (22:06)
[2018-05-07] MEDS: OLANZapine 5 MG TABLET PO SCH (22:06)
[2018-05-07] MEDS: MELATONIN 5 MG TABLETS PO PRN (22:09)
[2018-05-08] MEDS ORDERED: METHADONE HCL 5 MG TABLET ONE (04:19)
[2018-05-08] MEDS ORDERED: METHADONE HCL 10 MG TABLET ONE (04:20)
[2018-05-08] MEDS ORDERED: METHADONE HCL 40 MG DISPERSABLE TABLET ONE (04:20)
[2018-05-08] MEDS: METHADONE 40 MG, METHADONE 20 MG, METHADONE 5 MG PO SCH (07:10)
[2018-05-08] MEDS: ESCITALOPRAM OXALATE 10 MG TABLET (FP) PO SCH (10:43)
[2018-05-08] MEDS: PANTOPRAZOLE 40 MG TABLET (FP) PO SCH (10:43)
[2018-05-08] MEDS: PRENATAL VITAMINS W/ FOLIC ACID TABLET (FP) PO SCH (10:44)
[2018-05-08] MEDS: HYDROCORTISONE 0.5% TOPICAL CREAM 30 GM TUBE TP SCH ×2 (10:45→21:32)
[2018-05-08] MEDS: THIAMINE HCL 100 MG TABLET (FP) PO SCH (21:32)
[2018-05-08] MEDS: QUEtiapine FUMARATE 50 MG TABLET PO SCH (21:32)
[2018-05-08] MEDS: MELATONIN 5 MG TABLETS PO PRN (21:32)
[2018-05-08] MEDS: OLANZapine 5 MG TABLET PO SCH (21:32)
[2018-05-09] MEDS ORDERED: METHADONE HCL 40 MG DISPERSABLE TABLET ONE (03:25)
[2018-05-09] MEDS ORDERED: METHADONE HCL 10 MG TABLET ONE (03:25)
[2018-05-09] MEDS ORDERED: METHADONE HCL 5 MG TABLET ONE (03:25)
[2018-05-09] MEDS: METHADONE 40 MG, METHADONE 20 MG, METHADONE 5 MG PO SCH (06:41)
[2018-05-09] MEDS: PRENATAL VITAMINS W/ FOLIC ACID TABLET (FP) PO SCH (10:20)
[2018-05-09] MEDS: ESCITALOPRAM OXALATE 10 MG TABLET (FP) PO SCH (10:20)
[2018-05-09] MEDS: HYDROCORTISONE 0.5% TOPICAL CREAM 30 GM TUBE TP SCH ×2 (10:20→21:32)
[2018-05-09] MEDS: PANTOPRAZOLE 40 MG TABLET (FP) PO SCH (10:20)
[2018-05-09] MEDS ORDERED: SIMETHICONE 40 MG/0.6 ML BOTTLE PO PRN (10:36)
[2018-05-09] MEDS: QUEtiapine FUMARATE 50 MG TABLET PO SCH (21:32)
[2018-05-09] MEDS: OLANZapine 5 MG TABLET PO SCH (21:32)
[2018-05-09] MEDS: MELATONIN 5 MG TABLETS PO PRN (21:32)
[2018-05-09] MEDS: THIAMINE HCL 100 MG TABLET (FP) PO SCH (21:32)
[2018-05-10] MEDS ORDERED: METHADONE HCL 5 MG TABLET ONE (05:02)
[2018-05-10] MEDS ORDERED: METHADONE HCL 10 MG TABLET ONE (05:02)
[2018-05-10] MEDS ORDERED: METHADONE HCL 40 MG DISPERSABLE TABLET ONE (05:02)
[2018-05-10] MEDS: METHADONE 40 MG, METHADONE 20 MG, METHADONE 5 MG PO SCH (06:19)
[2018-05-10 07:14] VITALS: BP 110/72; PULSE 70; TEMP 97.6
[2018-05-10] MEDS: ESCITALOPRAM OXALATE 10 MG TABLET (FP) PO SCH (10:09)
[2018-05-10] MEDS: PANTOPRAZOLE 40 MG TABLET (FP) PO SCH (10:09)
[2018-05-10] MEDS: PRENATAL VITAMINS W/ FOLIC ACID TABLET (FP) PO SCH (10:09)
[2018-05-10] MEDS: HYDROCORTISONE 0.5% TOPICAL CREAM 30 GM TUBE TP SCH (10:10)
== END 2018-05-10 11:45 | disposition left against medical advice (07) | DRG 770 ==
LOC: YASAS 12:44 → Y5N 12:45
PROVIDERS: ADMIT Psychiatry & Neurology Psychiatry; ATTEND Psychiatry & Neurology Psychiatry
PROC: HZ42ZZZ Group Counseling for Substance Abuse Treatment, Cognitive-Behavioral (ICD-10-PCS; principal; 2018-05-06)
DX: F10.20 Alcohol dependence, uncomplicated (principal); F11.20 Opioid dependence, uncomplicated; F13.20 Sedative, hypnotic or anxiolytic dependence, uncomplicated; F14.20 Cocaine dependence, uncomplicated; F31.9 Bipolar disorder, unspecified; B18.2 Chronic viral hepatitis C; Z59.0 Homelessness

== ENCOUNTER 2018-10-22 09:42 | Inpatient (IN) | payer OTHER ==
[2018-10-22 10:34] VITALS: BMI 27.8
--- NOTE | 2018-10-22 10:35 | HP ---
CIWA Score Nausea/Vomitin Muscle Tremors: 2 Anxiety: 2 Agitation: 2 Paroxysmal Sweats: 1-Minimal Palms Moist Orientation: 0-Oriented Tacttile Disturbances: 1-Very Mild Itch/Numbness Auditory Disturbances: 1-Very Mild Visual Disturbances: 0-None Headache: 2-Mild CIWA-Ar Total Score: 13 - Admission Criteria OASAS Guidelines: Admission for Medically Managed Detox: Requires at least one of the followin. CIWA greater than 12 2. Seizures within the past 24 hours 3. Delirium tremens within the past 24 hours 4. Hallucinations within the past 24 hours 5. Acute intervention needed for co occurring medical disorder 6. Acute intervention needed for co occurring psychiatric disorder 7. Severe withdrawal that cannot be handled at a lower level of care (continued vomiting, continued diarrhea, abnormal vital signs) requiring intravenous medication and/or fluids 8. Patient presents the following: CIWA greater than 12 Admission Criteria Met: Admission criteria met Admission ROS BHS - HPI Chief Complaint: i need help to stop drinking alcohol and cocaine Allergies/Adverse Reactions: Allergies Allergy/AdvReac Type Severity Reaction Status Date / Time No Known Allergies Allergy Verified 10/22/18 11:28 History of Present Illness: this 42 years old male with alcohol and cocaine dependence,heroin abused, alprazolam dependence ,mmtp 70 mgs/day,last medicated today, I stop showed patient has alprazolam 1 mg had prescription filled on 10/20 19 , 90 tablets for 30 days, stated loss his medication,did not know how had take home bottle 70 mg methadone t be dispensed on 10/23/18 hepatitis c multiple admissions in detox ,but keep relapsing last admission detox [facility] 05/02/18 to 05/06/18,rehab 05/06/18 to 05/10/18 nicotine dependence longest sobriety 1 year plan to go to rehab after detox Exam Limitations: No Limitations - Ebola screening Have you traveled outside of the country in the last 21 days: No (N) Have you had contact with anyone from an Ebola affected area: No Do you have a fever: No - Review of Systems Constitutional: Loss of Appetite, Malaise, Night Sweats, Changes in sleep, Weakness EENT: reports: Nose Congestion Respiratory: reports: No Symptoms reported Cardiac: reports: No Symptoms Reported GI: reports: Nausea, Poor Appetite, Abdominal cramping : reports: No Symptoms Reported Musculoskeletal: reports: Back Pain, Muscle Pain Integumentary: reports: Dryness Neuro: reports: Headache, Tremors Endocrine: reports: No Symptoms Reported Hematology: reports: No Symptoms Reported Psychiatric: reports: No Sypmtoms Reported, Judgement Intact, Mood/Affect Appropiate, Orientated x3, Anxious, Depressed, other (bipolar disorder) Patient History - Patient Medical History Hx Anemia: No Hx Asthma: No Hx Chronic Obstructive Pulmonary Disease (COPD): No Hx Cancer: No Hx Cardiac Disorders: No Hx Congestive Heart Failure: No Hx Hypertension: No Hx Hypercholesterolemia: No Hx Pacemaker: No HX Cerebrovascular Accident: No Hx Seizures: No Hx Dementia: No Hx Diabetes: No Hx Gastrointestinal Disorders: No Hx Liver Disease: No Hx Genitourinary Disorders: No Hx Sexually Transmitted Disorders: No Hx Renal Disease (ESRD): No Hx Thyroid Disease: No Hx Human Immunodeficiency Virus (HIV): No (last 05/26 negative) Hx Hepatitis C: Yes (1996- never treated) Hx Depression: Yes Hx Suicide Attempt: No Hx Bipolar Disorder: Yes Hx Schizophrenia: No Other Medical History: no suicidal,no homicidal - Patient Surgical History Past Surgical History: No Hx Neurologic Surgery: No Hx Cataract Extraction: No Hx Cardiac Surgery: No Hx Lung Surgery: No Hx Breast Surgery: No Hx Breast Biopsy: No Hx Abdominal Surgery: No Hx Appendectomy: No Hx Cholecystectomy: No Hx Genitourinary Surgery: No Hx Section: No Hx Orthopedic Surgery: No Anesthesia Reaction: No - PPD History Previous Implant?: Yes Documented Results: Negative w/proof Implanted On Prior [facility] Admission?: Yes Date: 11/01/17 Results: 0 mm. PPD to be Administered?: No - Smoking Cessation Smoking history: Former smoker Have you smoked in the past 12 months: Yes Aproximately how many cigarettes per day: 20 Cigars Per Day: 0 Hx Chewing Tobacco Use: No Initiated information on smoking cessation: Yes 'Breaking Loose' booklet given: 10/22/18 - Substance & Tx. History Hx Alcohol Use: Yes Hx Substance Use: Yes Substance Use Type: Alcohol, Cocaine, Heroin, Tranquilizers Hx Substance Use Treatment: Yes ([facility] 05/02/18 to 05/06/18 detox,05/06/18 to 09/26 rehab) - Substances Abused Alcohol Route: Oral Frequency: Daily Amount used: 3 pints of vodak/10 of 16 ozs of beer Age of first use: 13 Date of Last Use: 10/22/18 Cocaine Route: Injection Frequency: Daily Amount used: 30$ Age of first use: 15 Date of Last Use: 10/21/18 Heroin Route: Injection Frequency: Daily Amount used: 6 bags Age of first use: 15 Date of Last Use: 10/21/18 Alprazolam (Xanax) Route: Oral Frequency: Daily Amount used: 3 mgs Age of first use: 39 Date of Last Use: 10/21/18 Family Disease History - Family Disease History Family Disease History: Heart Disease: Father (, ALCOHOL), Mother ( , ), Brother (six - living), Sister (three - living ), Other: Father, Mother, Brother, Sister, Daughter (two - ages 16 and 20, healthy) Admission Physical Exam [facility] - Vital Signs Vital Signs: Vital Signs Temperature 96.7 F L 10/22/18 10:32 Pulse Rate 72 10/22/18 10:32 Respiratory Rate 19 10/22/18 10:32 Blood Pressure 100/69 10/22/18 10:32 O2 Sat by Pulse Oximetry (%) - Physical General Appearance: Yes: Mild Distress, Irritable, Anxious HEENTM: Yes: Normal ENT Inspection, PRIMITIVO, Pharynx Normal Respiratory: Yes: Lungs Clear, Normal Breath Sounds, No Respiratory Distress Neck: Yes: Within Normal Limits, No masses,lesions,Nodules, Supple, Trachea in good position Breast: Yes: Within Normal Limits Cardiology: Yes: Within Normal Limits, Regular Rhythm, Regular Rate, S1, S2 Abdominal: Yes: Within Normal Limits, Normal Bowel Sounds, Non Tender, Flat, Soft Genitourinary: Yes: Within Normal Limits Back: Yes: Muscle Spasm Musculoskeletal: Yes: Back pain, Muscle Pain Extremities: Yes: Tremors Neurological: Yes: flake drier II-XII NML intact, Fully Oriented, Alert, Motor Strength 5/5 Integumentary: Yes: Dry Lymphatic: Yes: Within Normal Limits - Diagnostic (1) Alcohol dependence with uncomplicated withdrawal Current Visit: Yes Status: Acute (2) Hepatitis C Current Visit: No Status: Acute (3) Nicotine dependence Current Visit: Yes Status: Chronic Comment: intermittent use (4) Opioid dependence on agonist therapy Current Visit: Yes Status: Chronic (5) Bipolar disorder Current Visit: No Status: Chronic Comment: As per records.Patient refused to provide information in this interview. (6) Cocaine dependence Current Visit: Yes Status: Chronic Qualifiers: (7) Heroin abuse Current Visit: Yes Status: Acute (8) Uncomplicated sedative, hypnotic or anxiolytic withdrawal Current Visit: No Status: Acute Cleared for Admission [facility] - Detox or Rehab [facility] Level of Care: Medically Managed Detox Regimen/Protocol: Librium [facility] Breath Alcohol Content Breath Alcohol Content: 0.064 Inpatient Rehab Admission - Rehab Decision to Admit Inpatient rehab admission?: No
[2018-10-22] MEDS ORDERED: MENTHOL/PHENOL 1 EACH UD MM PRN (11:09)
[2018-10-22] MEDS ORDERED: MAGNESIUM HYDROX 2400MG/30ML ORAL SUSPENSION 30 ML CUP PO PRN (11:09)
[2018-10-22] MEDS ORDERED: hydrOXYzine PAMOATE 25 MG CAPSULE (FP) PO PRN (11:09)
[2018-10-22] MEDS ORDERED: ACETAMINOPHEN 325 MG TABLET (FP) PO PRN ×2 (11:09)
[2018-10-22] MEDS ORDERED: MAGNESIUM CITRATE 300 ML BOTTLE PO PRN (11:09)
[2018-10-22] MEDS ORDERED: MAG HYDROX/AL HYDROX/SIMETH 30 ML UNIT-DOSE CUP PO PRN (11:09)
[2018-10-22] MEDS ORDERED: chlordiazePOXIDE HCL 25 MG CAPSULE PO PRN (11:09)
[2018-10-22] MEDS ORDERED: BISMUTH SUBSALICYLATE 524 MG/30 ML UD PO PRN (11:09)
[2018-10-22] MEDS ORDERED: IBUPROFEN 400 MG TABLET (FP) PO PRN (11:09)
[2018-10-22] MEDS: chlordiazePOXIDE HCL 25 MG CAPSULE PO SCH ×2 (17:49→23:31)
--- NOTE | 2018-10-22 17:51 | CONSULT ---
[facility] Psychiatric Consult - Data Date of interview: 10/22/18 Admission source: [facility] Identifying data: Readmission to [facility] for this 42 y/o [place] male, who presented to [facility] with a withdrawal syndrome and requested detoxification treatment (alcohol, opioid, xanax, cocaine). Interviewed on . Patient is , a father of two, homeless, unemployed and supported on Public Assistance. Substance Abuse History: Confirmed by the patient in this interview. Details in current [facility] report as follows : Smoking history: Former smoker. Have you smoked in the past 12 months: Yes. Aproximately how many cigarettes per day: 20. Cigars Per Day: 0. Hx Chewing Tobacco Use: No. Initiated information on smoking cessation: Yes. 'Breaking Loose' booklet given: 10/22/18. - Substance & Tx. History. Hx Alcohol Use: Yes. Hx Substance Use: Yes. Substance Use Type : Alcohol, Cocaine, Heroin, Tranquilizers. Hx Substance Use Treatment: Yes ( [facility] 05/02/18 to 05/06/18 detox,05/06/18 to 05/10/18 rehab). - Substances Abused. Alcohol. Route: Oral. Frequency: Daily. Amount used: 3 pints of vodak/10 of 16 ozs of beer. Age of first use: 13. Date of Last Use: 10/22/18. Cocaine. Route: Injection. Frequency: Daily. Amount used: 30$. Age of first use: 15. Date of Last Use: 10/21/18. Heroin. Route: Injection. Frequency: Daily. Amount used: 6 bags. Age of first use: 15. Date of Last Use : 10/21/18. Alprazolam (Xanax). Route: Oral. Frequency: Daily. Amount used: 3 mgs. Age of first use: 39. Date of Last Use: 10/21/18 Medical History: Medical history is remarkable for hepatitis C (diagnosed in 1996), chronic lumbar pain (herniated disc), tinnitus (bilateral) and benzodiazepine-related seizures. Patient still attends [facility] for methadone maintenance (70 mg/day). Psychiatric History: Patient admits to a history of multiple psychiatric hositalizations. " More than 20 times ". Has been diagnosed with Bipolar Disorder since 2009. Mr Godiwn is known to [facility], [facility], [facility], [facility], [facility] and other unnamed institutions. Patient is no longer seeing a psychiatrist at [facility]. He is currently followed at [facility] under a regimen of olanzapine 15 mg/hs. States that he took that medication last night at his halfway. Patient is a questionable historian. Denies history of suicide attempts in this interview. Physical/Sexual Abuse/Trauma History: Not discussed in this interview. Patient declines. Additional Comment: Toxicology : not available. Mental Status Exam - Mental Status Exam Alert and Oriented to: Time, Place, Person Cognitive Function: Good Patient Appearance: Unkempt, Disheveled (covered with tattoos : both arms + forearms + neck) Mood: Withdrawn, Anxious, Irritable Affect: Mood Congruent, Constricted Patient Behavior: Sedated, Fatigued, Cooperative (marginally cooperative) Speech Pattern: Delayed, Slurred Voice Loudness: Moderately Soft/Quiet Thought Process: Goal Oriented (observed as capable of following redirections, answering simple questions and executing tasks) Thought Disorder: Not Present Hallucinations: Denies Suicidal Ideation: Denies Homicidal Ideation: Denies Insight/Judgement: Poor Sleep: Fair Appetite: Good (ate dinner) Muscle strength/Tone: Normal Gait/Station: Other (slow and unsteady gait) Psychiatric Findings - Problem List ([place] 1, 2,3) (1) Alcohol dependence with uncomplicated withdrawal Current Visit: Yes Status: Acute (2) Opioid dependence on agonist therapy Current Visit: Yes Status: Chronic (3) Cocaine dependence Current Visit: Yes Status: Chronic Qualifiers: (4) Nicotine dependence Current Visit: Yes Status: Chronic Comment: intermittent use (5) Substance induced mood disorder Current Visit: Yes Status: Chronic (6) History of bipolar disorder Current Visit: Yes Status: Chronic (7) Non-compliant patient Current Visit: Yes Status: Chronic Comment: Questionable adherence to medications + OPD care. - Initial Treatment Plan Initial Treatment Plan: Psychoeducation. Sleep hygiene. Support. Detoxification. Olanzapine 10 mg po hs (to start on 10/23/18). Ordered at patient 's specific request. Side effects/benefits revisited with the patient (no history of adverse events form the drug as per self-report). Observation.
[2018-10-22] MEDS: THIAMINE HCL 100 MG TABLET (FP) PO SCH (23:31)
[2018-10-23] MEDS ORDERED: METHADONE HCL 40 MG DISPERSABLE TABLET ONE (04:19)
[2018-10-23] MEDS ORDERED: METHADONE HCL 10 MG TABLET (FOR DETOX USE ONLY) ONE (04:19)
[2018-10-23] MEDS: chlordiazePOXIDE HCL 25 MG CAPSULE PO SCH ×4 (05:53→22:49)
[2018-10-23] MEDS ORDERED: METHADONE 40 MG, METHADONE (DETOX) 30 MG PO ONE (06:00)
[2018-10-23] MEDS ORDERED: METHADONE HCL 10 MG TABLET PO ONE (06:00)
[2018-10-23] MEDS: PRENATAL VITAMINS W/ FOLIC ACID TABLET (FP) PO SCH (10:22)
--- NOTE | 2018-10-23 10:34 | PN ---
[facility] CIWA - CIWA Score Nausea/Vomitin-No Nausea/No Vomiting Muscle Tremors: 3 Anxiety: 1-Mildly Anxious Agitation: 2 Paroxysmal Sweats: 1-Minimal Palms Moist Orientation: 3-Disoriented Date>2 days Tacttile Disturbances: 0-None Auditory Disturbances: 0-None Visual Disturbances: 0-None Headache: 1-Very Mild CIWA-Ar Total Score: 11 BHS Progress Note (SOAP) Subjective: tremor sweating trouble sleep at night anxiousness Objective: 10/23/18 10:34 Vital Signs Temperature 96.8 F L 10/23/18 09:33 Pulse Rate 58 L 10/23/18 09:33 Respiratory Rate 18 10/23/18 09:33 Blood Pressure 102/70 10/23/18 09:33 O2 Sat by Pulse Oximetry (%) 10/23/18 10:37 lab pending Assessment: 10/23/18 10:37 withdrawal sx Plan: continue detox
[2018-10-23 11:27] LABS: HEMATOCRIT 36.7 % (35.4-49); HEMOGLOBIN 12.7 GM/dL (11.7-16.9); MCHC 34.6 g/dl (32.0-35.9); MEAN CELL VOLUME 95.4 fl (80-96); MEAN PLT VOLUME 9.6 fl (7.5-11.1); PLATELET COUNT 140 K/MM3 (134-434); RBC 3.84 M/mm3 (4.00-5.60); RDW 14.3 % (11.9-15.9); WHITE BLOOD COUNT 5.1 K/mm3 (4.0-10.0)
[2018-10-23 12:06] LABS: ALBUMIN 3.3 g/dl (3.4-5.0); ALK PHOS 80 U/L (45-117); ANION GAP 5 MMOL/L (8-16); BILIRUBIN,TOTAL 0.4 mg/dL (0.2-1); BLOOD UREA NITROGEN 19 mg/dL (7-18); CALCIUM 7.6 mg/dL (8.5-10.1); CHLORIDE 107 mmol/L (98-107); CO2 29 mmol/L (21-32); GLUCOSE,RANDOM 103 mg/dL (74-106); POTASSIUM 3.9 mmol/L (3.5-5.1); SGOT/AST 71 U/L (15-37); SGPT/ALT 82 U/L (13-61); SODIUM 141 mmol/L (136-145)
[2018-10-23] MEDS: THIAMINE HCL 100 MG TABLET (FP) PO SCH (22:49)
[2018-10-23] MEDS: OLANZapine 10 MG TABLET PO SCH (22:49)
[2018-10-24] MEDS: chlordiazePOXIDE HCL 25 MG CAPSULE PO SCH ×2 (05:29→10:46)
[2018-10-24] MEDS: PRENATAL VITAMINS W/ FOLIC ACID TABLET (FP) PO SCH (10:11)
[2018-10-24] MEDS ORDERED: METHADONE HCL 10 MG TABLET PO ONE (10:22)
--- NOTE | 2018-10-24 10:28 | PN ---
S CIWA - CIWA Score Nausea/Vomitin-No Nausea/No Vomiting Muscle Tremors: 1-None Visible, but [place] Anxiety: 2 Agitation: 2 Paroxysmal Sweats: 1-Minimal Palms Moist Orientation: 1-Uncertain about Date Tacttile Disturbances: 0-None Auditory Disturbances: 0-None Visual Disturbances: 0-None Headache: 1-Very Mild CIWA-Ar Total Score: 8 S Progress Note (SOAP) Subjective: tremor sweating but sleep better at night well-rested Objective: 10/24/18 10:29 Vital Signs Temperature 96.9 F L 10/24/18 06:09 Pulse Rate 63 10/24/18 06:09 Respiratory Rate 18 10/24/18 06:09 Blood Pressure 99/59 L 10/24/18 06:09 O2 Sat by Pulse Oximetry (%) Laboratory Last Values WBC 5.1 K/mm3 (4.0-10.0) 10/23/18 07:35 RBC 3.84 M/mm3 (4.00-5.60) L 10/23/18 07:35 Hgb 12.7 GM/dL (11.7-16.9) 10/23/18 07:35 Hct 36.7 % (35.4-49) 10/23/18 07:35 MCV 95.4 fl (80-96) 10/23/18 07:35 MCH 33.0 pg (25.7-33.7) D 10/23/18 07:35 MCHC 34.6 g/dl (32.0-35.9) 10/23/18 07:35 RDW 14.3 % (11.9-15.9) 10/23/18 07:35 Plt Count 140 K/MM3 (134-434) D 10/23/18 07:35 MPV 9.6 fl (7.5-11.1) D 10/23/18 07:35 Sodium 141 mmol/L (136-145) 10/23/18 07:35 Potassium 3.9 mmol/L (3.5-5.1) 10/23/18 07:35 Chloride 107 mmol/L (98-107) 10/23/18 07:35 Carbon Dioxide 29 mmol/L (21-32) 10/23/18 07:35 Anion Gap 5 MMOL/L (8-16) L 10/23/18 07:35 BUN 19 mg/dL (7-18) H 10/23/18 07:35 Creatinine 1.0 mg/dL (0.55-1.3) 10/23/18 07:35 Creat Clearance w eGFR 81.55 (>60) 10/23/18 07:35 Random Glucose 103 mg/dL (74-106) 10/23/18 07:35 Calcium 7.6 mg/dL (8.5-10.1) L 10/23/18 07:35 Total Bilirubin 0.4 mg/dL (0.2-1) 10/23/18 07:35 AST 71 U/L (15-37) H 10/23/18 07:35 ALT 82 U/L (13-61) H 10/23/18 07:35 Alkaline Phosphatase 80 U/L (45-117) 10/23/18 07:35 Total Protein 7.0 g/dl (6.4-8.2) 10/23/18 07:35 Albumin 3.3 g/dl (3.4-5.0) L 10/23/18 07:35 RPR Titer Nonreactive (NONREACTIVE) 10/23/18 07:35 lab noted low Ca+ Ca+ supplement 10/24/18 10:32 Assessment: 10/24/18 10:32 withdrawal sx Plan: continue detox
[2018-10-24] MEDS ORDERED: METHADONE 40 MG, METHADONE 30 MG PO ONE (10:35)
[2018-10-24] MEDS ORDERED: METHADONE HCL 40 MG DISPERSABLE TABLET ONE (10:38)
[2018-10-24] MEDS ORDERED: METHADONE HCL 10 MG TABLET ONE (10:38)
[2018-10-24] MEDS: METHOCARBAMOL 500 MG TABLET PO PRN (10:46)
[2018-10-24] MEDS: CALCIUM 250MG/VIT-D 125 UNITS 1 COMBO TABLET PO SCH ×2 (10:46→22:43)
[2018-10-24] MEDS ORDERED: chlordiazePOXIDE HCL 10 MG CAPSULE PO PRN (17:00)
[2018-10-24] MEDS: chlordiazePOXIDE HCL 10 MG CAPSULE PO SCH ×2 (17:13→22:43)
[2018-10-24] MEDS: THIAMINE HCL 100 MG TABLET (FP) PO SCH (22:43)
[2018-10-24] MEDS: OLANZapine 10 MG TABLET PO SCH (22:43)
[2018-10-24] MEDS: MELATONIN 5 MG TABLETS PO PRN (22:44)
--- NOTE | 2018-10-24 22:53 | EKG ---
Test Reason : Blood Pressure : / mmHG Vent. Rate : 073 BPM Atrial Rate : 073 BPM P-R Int : 148 ms QRS Dur : 088 ms QT Int : 418 ms P-R-T Axes : 065 -03 044 degrees QTc Int : 460 ms NORMAL SINUS RHYTHM NORMAL ECG WHEN COMPARED WITH ECG OF 02-MAY-2018 16:51, T WAVE VARIATION Confirmed by JOSE MARTIN TRIPLETT MD ([id number]) on 10/24/2018 10:53:23 PM Referred By: Confirmed By:JOSE MARTIN TRIPLETT MD
[2018-10-25] MEDS ORDERED: METHADONE HCL 10 MG TABLET ONE (04:41)
[2018-10-25] MEDS ORDERED: METHADONE HCL 40 MG DISPERSABLE TABLET ONE (04:42)
[2018-10-25] MEDS: METHADONE 40 MG, METHADONE 30 MG PO SCH (05:53)
[2018-10-25] MEDS: chlordiazePOXIDE HCL 10 MG CAPSULE PO SCH ×3 (05:53→17:38)
[2018-10-25] MEDS ORDERED: METHADONE HCL 10 MG TABLET PO SCH (06:00)
[2018-10-25] MEDS: METHOCARBAMOL 500 MG TABLET PO PRN (10:19)
[2018-10-25] MEDS: PRENATAL VITAMINS W/ FOLIC ACID TABLET (FP) PO SCH (10:19)
[2018-10-25] MEDS: CALCIUM 250MG/VIT-D 125 UNITS 1 COMBO TABLET PO SCH ×2 (10:19→22:22)
--- NOTE | 2018-10-25 13:36 | PN ---
[facility] CIWA - CIWA Score Nausea/Vomitin-No Nausea/No Vomiting Muscle Tremors: 1-None Visible, but [place] Anxiety: 1-Mildly Anxious Agitation: 1-Slight > Activity Paroxysmal Sweats: 1-Minimal Palms Moist Orientation: 0-Oriented Tacttile Disturbances: 0-None Auditory Disturbances: 0-None Visual Disturbances: 0-None Headache: 0-None Present CIWA-Ar Total Score: 4 BHS Progress Note (SOAP) Subjective: feeling better good cencentration sleep better at night Objective: 10/25/18 13:37 Vital Signs Temperature 99.2 F 10/25/18 13:30 Pulse Rate 56 L 10/25/18 13:30 Respiratory Rate 16 10/25/18 13:30 Blood Pressure 105/62 10/25/18 13:30 O2 Sat by Pulse Oximetry (%) Laboratory Last Values WBC 5.1 K/mm3 (4.0-10.0) 10/23/18 07:35 RBC 3.84 M/mm3 (4.00-5.60) L 10/23/18 07:35 Hgb 12.7 GM/dL (11.7-16.9) 10/23/18 07:35 Hct 36.7 % (35.4-49) 10/23/18 07:35 MCV 95.4 fl (80-96) 10/23/18 07:35 MCH 33.0 pg (25.7-33.7) D 10/23/18 07:35 MCHC 34.6 g/dl (32.0-35.9) 10/23/18 07:35 RDW 14.3 % (11.9-15.9) 10/23/18 07:35 Plt Count 140 K/MM3 (134-434) D 10/23/18 07:35 MPV 9.6 fl (7.5-11.1) D 10/23/18 07:35 Sodium 141 mmol/L (136-145) 10/23/18 07:35 Potassium 3.9 mmol/L (3.5-5.1) 10/23/18 07:35 Chloride 107 mmol/L (98-107) 10/23/18 07:35 Carbon Dioxide 29 mmol/L (21-32) 10/23/18 07:35 Anion Gap 5 MMOL/L (8-16) L 10/23/18 07:35 BUN 19 mg/dL (7-18) H 10/23/18 07:35 Creatinine 1.0 mg/dL (0.55-1.3) 10/23/18 07:35 Creat Clearance w eGFR 81.55 (>60) 10/23/18 07:35 Random Glucose 103 mg/dL (74-106) 10/23/18 07:35 Calcium 7.6 mg/dL (8.5-10.1) L 10/23/18 07:35 Total Bilirubin 0.4 mg/dL (0.2-1) 10/23/18 07:35 AST 71 U/L (15-37) H 10/23/18 07:35 ALT 82 U/L (13-61) H 10/23/18 07:35 Alkaline Phosphatase 80 U/L (45-117) 10/23/18 07:35 Total Protein 7.0 g/dl (6.4-8.2) 10/23/18 07:35 Albumin 3.3 g/dl (3.4-5.0) L 10/23/18 07:35 RPR Titer Nonreactive (NONREACTIVE) 10/23/18 07:35 lab noted calcium Assessment: 10/25/18 13:38 mild withdrawal sx Plan: continue detox
[2018-10-25] MEDS: THIAMINE HCL 100 MG TABLET (FP) PO SCH (22:22)
[2018-10-25] MEDS: OLANZapine 10 MG TABLET PO SCH (22:22)
[2018-10-25] MEDS: MELATONIN 5 MG TABLETS PO PRN (22:23)
[2018-10-26] MEDS ORDERED: METHADONE HCL 10 MG TABLET ONE (04:32)
[2018-10-26] MEDS ORDERED: METHADONE HCL 40 MG DISPERSABLE TABLET ONE (04:33)
[2018-10-26] MEDS: chlordiazePOXIDE HCL 10 MG CAPSULE PO SCH (05:35)
[2018-10-26] MEDS: METHADONE 40 MG, METHADONE 30 MG PO SCH (05:35)
[2018-10-26 06:48] VITALS: BP 100/59; PULSE 62; TEMP 97.6
--- NOTE | 2018-10-26 15:07 | DS ---
[facility] Detox Discharge Summary Admission Date: 10/22/18 Discharge Date: 10/26/18 - History Present History: Alcohol Dependence Additional Comments: 42 years old male admitted on 10/22/18 for alcohol withdrawal stabilization completed detox regimen aftercarer evelation - Physical Exam Results Vital Signs: Vital Signs Temperature 97.6 F 10/26/18 06:47 Pulse Rate 62 10/26/18 06:47 Respiratory Rate 18 10/26/18 06:47 Blood Pressure 100/59 L 10/26/18 06:47 O2 Sat by Pulse Oximetry (%) Pertinent Admission Physical Exam Findings: alcohol withdrawal sx Laboratory Last Values WBC 5.1 K/mm3 (4.0-10.0) 10/23/18 07:35 RBC 3.84 M/mm3 (4.00-5.60) L 10/23/18 07:35 Hgb 12.7 GM/dL (11.7-16.9) 10/23/18 07:35 Hct 36.7 % (35.4-49) 10/23/18 07:35 MCV 95.4 fl (80-96) 10/23/18 07:35 MCH 33.0 pg (25.7-33.7) D 10/23/18 07:35 MCHC 34.6 g/dl (32.0-35.9) 10/23/18 07:35 RDW 14.3 % (11.9-15.9) 10/23/18 07:35 Plt Count 140 K/MM3 (134-434) D 10/23/18 07:35 MPV 9.6 fl (7.5-11.1) D 10/23/18 07:35 Sodium 141 mmol/L (136-145) 10/23/18 07:35 Potassium 3.9 mmol/L (3.5-5.1) 10/23/18 07:35 Chloride 107 mmol/L (98-107) 10/23/18 07:35 Carbon Dioxide 29 mmol/L (21-32) 10/23/18 07:35 Anion Gap 5 MMOL/L (8-16) L 10/23/18 07:35 BUN 19 mg/dL (7-18) H 10/23/18 07:35 Creatinine 1.0 mg/dL (0.55-1.3) 10/23/18 07:35 Creat Clearance w eGFR 81.55 (>60) 10/23/18 07:35 Random Glucose 103 mg/dL (74-106) 10/23/18 07:35 Calcium 7.6 mg/dL (8.5-10.1) L 10/23/18 07:35 Total Bilirubin 0.4 mg/dL (0.2-1) 10/23/18 07:35 AST 71 U/L (15-37) H 10/23/18 07:35 ALT 82 U/L (13-61) H 10/23/18 07:35 Alkaline Phosphatase 80 U/L (45-117) 10/23/18 07:35 Total Protein 7.0 g/dl (6.4-8.2) 10/23/18 07:35 Albumin 3.3 g/dl (3.4-5.0) L 10/23/18 07:35 RPR Titer Nonreactive (NONREACTIVE) 10/23/18 07:35 lab noted calcium supplement - Treatment Hospital Course: Detox Protocol Followed, Detoxed Safely, Responded well, Discharged Condition Good, Rehab Referral Accepted Patient has Accepted [facility] - Medication Discharge Medications: Ambulatory Orders Methadone [Dolophine -] 70 mg PO DAILY 10/22/18 Olanzapine [Zyprexa] 20 mg PO TID 10/22/18 - Diagnosis (1) Alcohol dependence with uncomplicated withdrawal Status: Acute (2) Hepatitis C Status: Chronic Qualifiers: Viral hepatitis chronicity: chronic Hepatic coma status: without hepatic coma Qualified Code(s): B18.2 - Chronic viral hepatitis C (3) Substance induced mood disorder Status: Suspected (4) Nicotine dependence Status: Acute (5) Substance induced mood disorder Status: Suspected - AMA Did Patient Leave Against Medical Advice: No
== END 2018-10-26 09:32 | disposition home or self-care (01) | DRG 773 ==
LOC: YASAS 09:42 → Y6N 11:19 → Y3N 11:21
PROVIDERS: ADMIT Surgery; ATTEND Surgery
PROC: HZ2ZZZZ Detoxification Services for Substance Abuse Treatment (ICD-10-PCS; principal; 2018-10-22)
DX: F10.230 Alcohol dependence with withdrawal, uncomplicated (principal); F13.230 Sedative, hypnotic or anxiolytic dependence with withdrawal, uncomplicated; F14.20 Cocaine dependence, uncomplicated; F11.20 Opioid dependence, uncomplicated; F17.213 Nicotine dependence, cigarettes, with withdrawal; F19.24 Other psychoactive substance dependence with psychoactive substance-induced mood disorder; F32.9 Major depressive disorder, single episode, unspecified; B18.2 Chronic viral hepatitis C; M54.5 Low back pain; G89.29 Other chronic pain; Z86.59 Personal history of other mental and behavioral disorders; Z91.19 Patient's noncompliance with other medical treatment and regimen; Z59.0 Homelessness
CPT/HCPCS: 36415; 80053; 85027; 86593; 93005; 93010